=== PATIENT | female | born 2000 | race Caucasian/White ===

== ENCOUNTER → 2024-05-02 | Outpatient (CLI) | payer BC, SELFPAY ==
--- NOTE | 2024-05-02 07:30 | XR_ITS ---
Examination: MRI right ankle, without contrast Date and time of exam: May 02, 2024 0828 hours Technique: Multiple axial sagittal and coronal images of the right ankle have been obtained with the Siemens high-resolution 1.5 Leslie MRI scanner. Images obtained include T2-weighted fat-suppressed sagittal sections, TR 3500, TE 46, T2 weighted coronal fat suppressed images, TR 3050, TE 84, T2-weighted transverse fat suppressed images, TR 3260, TE 63, proton density transverse images, TR 4720 TE 46, and T1 weighted coronal images, TR 560, TE 13. Findings: Mildly biconvex Achilles tendon Mild plantar fasciitis No occult fracture bone contusion marrow edema or avascular necrosis Negative for sinus Tarsi syndrome Edema along the medial aspect of the ankle adjacent to significant tendinitis involving the posterior tibial and flexor digitorum tendons, lesser tendinitis involving the flexor hallucis longus tendon Mild strain anterior talofibular ligament IMPRESSION: Edema along the medial aspect of the ankle Significant tendinitis involving posterior tibial and flexor digitorum tendons Lesser tendinitis involving the flexor hallucis longus Mild strain anterior talofibular ligament
--- NOTE | 2024-05-02 08:00 | XR_ITS ---
Examination: MRI right, without contrast Date and time of exam: May 02, 2024 0804 hours INDICATIONS: Burning sensation on the medial side of the ankle beginning one month ago, history stress fracture left foot Technique: Multiple axial sagittal and coronal images of the right foot have been obtained with the Siemens high-resolution 1.5 Leslie MRI scanner. Images obtained include T2-weighted fat-suppressed sagittal sections, TR 3500, TE 46, T2 weighted coronal fat suppressed images, TR 3050, TE 84, T2-weighted transverse fat suppressed images, TR 3260, TE 63, proton density transverse images, TR 4720 TE 46, and T1 weighted coronal images, TR 560, TE 13. Findings: Ganglion cyst dorsal to the base of the first and second metatarsals, 20 x 19 x 22 mm No occult fracture or bone contusion No avascular necrosis No erosive arthritis Visualized extensor flexor tendons intact IMPRESSION: Septated ganglion cyst dorsal to the base of the first and second metatarsals, 20 x 19 x 22 mm
== END | disposition home or self-care (01) ==
PROVIDERS: Referring Provider Podiatrist; Visit Provider Podiatrist
DX: M67.471 Ganglion, right ankle and foot (principal); M76.821 Posterior tibial tendinitis, right leg; M25.871 Other specified joint disorders, right ankle and foot; M25.471 Effusion, right ankle
CPT/HCPCS: 73718; 73721

== ENCOUNTER 2024-08-20 14:56 | Outpatient (AMB) | payer BC, SELFPAY ==
[2024-08-20 15:07] VITALS: BP 108/72; PULSE 88; RESP 16; TEMP 36.6; O2SAT 99; BMI 41.5
--- NOTE | 2024-08-20 15:07 | OBCLNT_ITS ---
Vital Signs 08/20/24 15:07 Height 1.6 m Height Method Stated Weight 106.311 kg Weight Measurement Method Standing Scale BMI 41.5 BP 108/72 Blood Pressure Source Automatic Cuff Blood Pressure Location Left Upper Arm Position Sitting Respiration 16 Pulse 88 Pulse Source Monitor Temp 97.9 F Temp Source Oral Pulse Oximetry (%) 99 Oxygen Delivery Method Room Air Allergies/Home Meds Allergies & Medications Allergies No Known Allergies Allergy (Verified 08/20/24 15:08) Medication Reconciliation No Known Home Medications 08/20/24 [History Confirmed 08/20/24] Intake Visit Data Collection New Patient or Established: Established Patient (seen at [facility] within 3 years) Reason for Visit:: CARE Seen by Clinical Staff ONLY (RN/MA): No Network Engineer Administrator Required: No Do You Feel Safe at Home: Yes Authorities Contacted: N/A PCP or OBGYN visit in last 3 months: No Hx Now: Yes Are you currently on any form of Control: No Last menstrual period: 03/29/24 Pain Present Currently: No Pain Scale Used: Vergara-Mcleod/Numerical Pain scale:: 0 Smoking Status Smoking Status: Never smoker Questionnaires Covid-19 Vaccine Questionnaire Has patient been vacinated for Covid-19 Have you been vacinated for Covid-19: No PHQ-9 PHQ-2 Over the last 2 weeks, how often have you been bothered by any of the following problems? 1. Little interest or pleasure in doing things: not at all 2. Feeling down, depressed, or hopeless: not at all Total score: 0 PHQ-9 3. Trouble falling or staying asleep, or sleeping too much: Not at all 4. Feeling tired or having little energy: Not at all 5. Poor appetite or overeating: Not at all 6. Feeling bad about yourself - or that you are a failure or have let yourself or your family down: Not at all 7. Trouble concentrating on things, such as reading the newspaper or watching television: Not at all 8. Moving or speaking so slowly that other people could have noticed? - Or the opposite - being so fidgety or restless that you have been moving around a lot more than usual: not at all 9. Thoughts that you would be better off or of hurting yourself in some way: Not at all Total score: 0 Source: Developed by Drs. Aime Stevenson, Rina Garcia, Abel Field and colleagues, with an educational monique from [employer]. Depression screen completed yes Social History Living Situation History Marital Status: Lives With: Family Housing: House Tobacco History Smoking Status: Never smoker Second Hand Smoke Exposure: No Alcohol History Alcohol Intake: Never Substance Use History Substance Use: NONE Domestic Abuse History Do You Feel Safe at Home: Yes Past Medical History Past Medical History Have you ever been diagnosed with any of the following: Neurological Problems Cerebrovascular Accident (CVA): No Transient Ischemic Attacks (TIA): No Dementia: No Alzheimer's Disease: No Parkinson's Disease: No Brain Tumor: No Meningitis: No Seizures: No Cardiology Problems Myocardial Infarction: No Cardiac Arrhythmia: No Atrial Fibrillation: No Angina: No Heart Murmur: No Congestive Heart Failure: No Respiratory Problems Chronic Obstructive Pulmonary Disease (COPD): No Asthma: No Bronchitis: No Emphysema: No Stomache/Intestinal Problems Liver Cancer: No Hepatitis: No Cirrhosis: No Pancreatic Cancer: No Genital/Urinary Problems Renal Disease: No Reproductive Problems Endometriosis: No Pelvic Inflammatory Disease: No Previous Pregnancies: Yes Uterine Prolapse: No Musculoskeletal Problems Muscular Dystrophy: No Myasthenia Gravis: No Marfan's Syndrome: No Head,Eye,Nose,Throat Problems Cataracts: No Glaucoma: No Blind: No Retinal Detachment: No Macular Degeneration: No Chronic Ear Infections: No Deafness: No Eye Prosthesis: No Endocrine Problems Diabetes Mellitus Type 1: No Diabetes Mellitus Type 2: No Blood Problems Anemia: No Leukemia: No Hemophilia: No Thalassemia: No Sickle Cell Disease: No Clotting Problems: No Psychologic Problems Schizophrenia: No Recreational Drug Use: No Bipolar Disorder: No Depression: No Anxiety: No Other Problems Hospitalization: No Down Syndrome: No Developmental Delay: No Shingles: No Falls: No Blood Transfusions: No Blood Transfusion Reaction: No Anesthesia Reactions: No Organ Transplant: No Chemotherapy: No Radiation Therapy: No Hyperbaric Therapy: No MRSA: No VRSA: No Vancomycin-Resistant Enterococci: No Human Immunodeficiency Virus (HIV): No Chicken Pox: No Measles: No Mumps: No Rubella (Korean Measles): No Pertussis: No Clostridium Difficile: No Cancer: No Surgical History Angioplasty: No Appendectomy: No Bariatric Surgery: No History of Present Illness BRIDGET German, , presents for transfer of care at 20 weeks and 4 days gestational age based on last menstrual period of 03-29-2024. She has a history of one full-term vaginal delivery. The patient reports no other complaints today. She has completed labs through [facility], including NIPT and genetic screening. An [facility], with verbal report indicating normal findings and measurements 5 days ahead. The patient is currently experiencing cold symptoms with cough but denies fever. Laboratory, Imaging, and Diagnostic Test Results - Anatomy scan: Fetus measuring 5 days ahead, all structures reported as normal - NIPT (Non-Invasive Testing): Negative for trisomies, sex identified as male - Blood type: A-negative - Rh factor: Negative - Antibody screen: Negative - HIV: Negative - Hepatitis B: Negative - Hepatitis C: Negative - RPR (for syphilis): Negative - HCG level on June 07: 74,000 OB Initial Visit Menstrual History Menstrual reliability: definite Flow: normal Menstrual regularity: irregular Monthly: No Age at menarche: 13 On control pills at conception: No Date of positive home test: 05/13/24 OB History : 2 Para: 1 Hx # Pregnancies: 0 Hx Total # of Abortions (Spontaneous & Elective): 0 # of Living Children: 1 Delivery History 1st : Child's name: ELMA date: 06/24/22 sex: female Gestational age at delivery (weeks): 39 Delivery type: vaginal Delivery complications: BABY- BROKEN CLAVICLE History of depression before or after : No Infection History & Risk Evaluation History of STDs: none Genetic Screening & History Genetic Screening/Teratology Counseling - Includes patient, baby's father, or anyone in either family with: 1. Patient's age 35 years or older as of estimated date of delivery: No 2. Thalassemia (Eritrean, Georgian, Mediterranean, or Background); MCV less than 80: No 3. Neural Tube Defect (Meningomyelocele, Spina Bifida, or Anencephaly): No 4. Congenital Heart Defect: No 5. Down Syndrome: No 6. Jeremy-Sachs (Ashkenazi Sabianist, Cajun, Croatian Starlight): No 7. Nu Disease (Ashkenazi Sabianist): No 8. Familial Dysautonomia (Ashkenazi Sabianist): No 10. Hemophilia or other blood disorders: No 11. Muscular Dystrophy: No 12. Cystic Fibrosis: No 13. [place]'s Chorea: No 14. Mental Retardation/Autism: No 15. Other inherited genetic or chromosomal disorder: No 16. Maternal Metabolic Disorder (EG,TYPE 1 Diabetes, PKU): No 17. Patient or baby's father had a child with defects not listed above: No 18. Recurrent loss or a stillbirth: No 19. Medications (including supplements, vitamins, herbs or otc drugs)/illicit/recreational drugs/alcohol since last menstrual period: No 20. Any other: No Infection History 1. Live with someone with TB or exposed to TB: No 2. Rash or viral illness since last menstrual period: No 3. Hepatitis B,C: No Other (see comments) Source: [employer] OB Flowsheet OB Flowsheet Initial Weight: Not Recorded Date -?-?-?-?-?-?-?-?-?-?-?-?- EGA Weight Edema CTX Effacement BP Fundal ht Pres Dilation Effacement Station Visit Note Alb Glu FHR Mov 08/20/24 -?-?-?-?-?-?-?-?-?-?-?-?- 20w 4d 106.311 kg 108/72 135 Review of Systems Review of Systems Systems Reviewed: All systems reviewed, normal except as documented Exam General Limitations: no limitations General Appearance: alert, in no apparent distress, comfortable, cooperative, healthy appearing, well developed and well groomed Head Head exam: atraumatic, normocephalic and normal inspection Neck Neck exam: Present normal inspection, full ROM and trachea midline Chest Chest inspection: Present normal inspection and symmetric chest wall rise Abdominal Abdominal exam: Present soft and normal bowel sounds Extremities Extremities exam: Present normal inspection and full ROM Back Back exam: Present normal inspection and full ROM Psych Psychiatric exam: Present normal affect and normal mood Skin Skin exam: Present warm, dry, intact and normal color Assessment & Plan Diagnosis / Problem List (1) Obesity affecting in second trimester: Status: Acute Plan: Monserrat is a 24-year-old at 20 weeks and 4 days gestation based on LMP of 03-29-2024. She has a history of one full-term vaginal delivery. The patient has completed NIPT and anatomy scan. Verbal report from anatomy scan indicates normal findings with fetus measuring 5 days ahead. NIPT results confirm male gender, which matches ultrasound findings. All genetic screenings for trisomies were negative. Patient is blood type A-negative with negative antibody screen. HIV, hepatitis B, hepatitis C, and RPR screenings were all negative. - Follow up with Dr. Roman on September 10 for next ultrasound - Schedule 24-week visit and labs - Obtain and review records from previous care provider, including anatomy scan report - Consider patient's interest in scheduled at 40 weeks; provide further counseling as needed (2) Supervision of high risk , unspecified, second trimester: Status: Acute (3) Rh negative status during : Status: Acute Plan: - Administer Rh immunoglobulin as indicated for Rh-negative status Office Procedures OB Clinic LOC & Office Proc's Nursing/Assessment Patient Status: Established Patient OB Clinic Nursing Assessment: Medication Reconciliation, Update PMH in EMR and Vital Signs OB Clinic Coordination of Care: Complex Care and Chronic Disease 1-5, Consent,records obtained, informed consent, Education Simp Pt/Fam, Lab and Imaging orders, Results/Orders obtained and Staff clarify orders Special Needs: Heart tones Established Patient Charge Established Patient Point Assignment: 135 Established Patient Point Charge: EP Level 4 (120-155)
== END 2024-08-20 15:40 | disposition home or self-care (01) ==
LOC: HODSOBC 14:56
PROVIDERS: PCP Obstetrics & Gynecology; Referring Provider Obstetrics & Gynecology; Supervising Provider Obstetrics & Gynecology; Visit Provider Obstetrics & Gynecology
DX: O09.92 Supervision of high risk pregnancy, unspecified, second trimester (principal); O99.212 Obesity complicating pregnancy, second trimester; Z67.91 Unspecified blood type, Rh negative; Z3A.20 20 weeks gestation of pregnancy
CPT/HCPCS: 99214; G0463

== ENCOUNTER 2024-09-17 14:58 | Outpatient (AMB) | payer BC, SELFPAY ==
[2024-09-17 15:18] VITALS: BP 132/72; PULSE 90; RESP 16; TEMP 35.9; O2SAT 99; BMI 41.6
--- NOTE | 2024-09-17 15:18 | OBCLNT_ITS ---
Vital Signs 09/17/24 15:18 Height 1.6 m Height Method Stated Weight 106.708 kg Weight Measurement Method Standing Scale BMI 41.6 BP 132/72 H Blood Pressure Source Automatic Cuff Blood Pressure Location Left Upper Arm Position Sitting Respiration 16 Pulse 90 Pulse Source Monitor Temp 96.7 F L Temp Source Oral Pulse Oximetry (%) 99 Oxygen Delivery Method Room Air Allergies/Home Meds Allergies & Medications Allergies No Known Allergies Allergy (Verified 09/17/24 15:21) Medication Reconciliation No Known Home Medications 08/20/24 [History Confirmed 09/17/24] Intake Visit Data Collection New Patient or Established: Established Patient (seen at [facility] within 3 years) Reason for Visit:: OBC Seen by Clinical Staff ONLY (RN/MA): No Resource Paraprofessional Required: No Do You Feel Safe at Home: Yes Authorities Contacted: N/A PCP or OBGYN visit in last 3 months: Yes Hx Now: Yes Are you currently on any form of Control: No Pain Present Currently: No Pain Scale Used: Vergara-Mcleod/Numerical Pain scale:: 0 Smoking Status Smoking Status: Never smoker Questionnaires Covid-19 Vaccine Questionnaire Has patient been vacinated for Covid-19 Have you been vacinated for Covid-19: Yes PHQ-9 PHQ-2 Over the last 2 weeks, how often have you been bothered by any of the following problems? 1. Little interest or pleasure in doing things: not at all 2. Feeling down, depressed, or hopeless: not at all Total score: 0 PHQ-9 3. Trouble falling or staying asleep, or sleeping too much: Not at all 4. Feeling tired or having little energy: Not at all 5. Poor appetite or overeating: Not at all 6. Feeling bad about yourself - or that you are a failure or have let yourself or your family down: Not at all 7. Trouble concentrating on things, such as reading the newspaper or watching television: Not at all 8. Moving or speaking so slowly that other people could have noticed? - Or the opposite - being so fidgety or restless that you have been moving around a lot more than usual: not at all 9. Thoughts that you would be better off or of hurting yourself in some way: Not at all Total score: 0 If you checked off any problems, how difficult have these problems made it for you to do your work, take care of things at home, or get along with other people?: not difficult at all Source: Developed by Drs. Aime Stevenson, Rina Garcia, Abel Field and colleagues, with an educational monique from [employer]. Depression screen completed yes Social History Living Situation History Lives With: Family Housing: House Tobacco History Smoking Status: Never smoker Second Hand Smoke Exposure: No Alcohol History Alcohol Intake: Never Substance Use History Substance Use: NONE Domestic Abuse History Do You Feel Safe at Home: Yes Past Medical History Past Medical History Have you ever been diagnosed with any of the following: Neurological Problems Cerebrovascular Accident (CVA): No Transient Ischemic Attacks (TIA): No Dementia: No Alzheimer's Disease: No Parkinson's Disease: No Brain Tumor: No Meningitis: No Seizures: No Cardiology Problems Myocardial Infarction: No Cardiac Arrhythmia: No Atrial Fibrillation: No Angina: No Heart Murmur: No Congestive Heart Failure: No Respiratory Problems Chronic Obstructive Pulmonary Disease (COPD): No Asthma: No Bronchitis: No Emphysema: No Stomache/Intestinal Problems Liver Cancer: No Hepatitis: No Cirrhosis: No Pancreatic Cancer: No Genital/Urinary Problems Renal Disease: No Reproductive Problems Endometriosis: No Pelvic Inflammatory Disease: No Previous Pregnancies: Yes Uterine Prolapse: No Musculoskeletal Problems Muscular Dystrophy: No Myasthenia Gravis: No Marfan's Syndrome: No Head,Eye,Nose,Throat Problems Cataracts: No Glaucoma: No Blind: No Retinal Detachment: No Macular Degeneration: No Chronic Ear Infections: No Deafness: No Eye Prosthesis: No Endocrine Problems Diabetes Mellitus Type 1: No Diabetes Mellitus Type 2: No Blood Problems Anemia: No Leukemia: No Hemophilia: No Thalassemia: No Sickle Cell Disease: No Clotting Problems: No Psychologic Problems Schizophrenia: No Recreational Drug Use: No Bipolar Disorder: No Depression: No Anxiety: No Other Problems Hospitalization: No Down Syndrome: No Developmental Delay: No Shingles: No Falls: No Blood Transfusions: No Blood Transfusion Reaction: No Anesthesia Reactions: No Organ Transplant: No Chemotherapy: No Radiation Therapy: No Hyperbaric Therapy: No MRSA: No VRSA: No Vancomycin-Resistant Enterococci: No Human Immunodeficiency Virus (HIV): No Chicken Pox: No Measles: No Mumps: No Rubella (Hungarian Measles): No Pertussis: No Clostridium Difficile: No Cancer: No Surgical History Angioplasty: No Appendectomy: No Bariatric Surgery: No History of Present Illness HPI Narrative Monserrat, a patient, presents for follow-up after a recent ultrasound with Dr. Cisneros on September 10. The patient reports that an abnormality was found during the ultrasound, specifically that the fetus has only one kidney, though she cannot recall which side is affected. The patient mentions that additional testing has been scheduled, including a echocardiogram. She states that during the previous ultrasound, all chambers and ventricles of the heart were visible. The patient confirms that the baby remains active. Monserrat is taking vitamins as prescribed. She has not yet completed the glucose tolerance test for diabetes screening, which has been ordered for today's visit. Obstetric History - Current : - abnormality detected: single kidney (side not specified) - Additional testing scheduled: echocardiogram No contractions/ LOF/VB, reports good FM No GARCIA/VC/RUQ/Epig pain Review of Systems Review of Systems Systems Reviewed: All systems reviewed, normal except as documented Visit OB Visit Log OB Flowsheet Initial Weight: Not Recorded Date -?-?-?-?-?-?-?-?-?-?-?-?- EGA Weight Edema CTX Effacement BP Fundal ht Pres Dilation Effacement Station Visit Note Alb Glu FHR Mov 08/20/24 -?-?-?-?-?-?-?-?-?-?-?-?- 20w 4d 106.311 kg 108/72 135 09/17/24 -?-?-?-?-?-?-?-?-?-?-?-?- 24w 4d 106.708 kg 132/72 - G o to [facility] for a glucose test - Fast before the test - Drink glucose solution at the lab - Blood will be drawn at 1 hour and 2 hours. - Call Dr. Roman's office to release y our records to us - Regular visit in 4 weeks - Earlier visit to discuss ultrasound re sults once we receive them - We will call you when we have the ultr asound report to schedule the earlier visit 145 ANN Calculator Estimated Delivery Date Method Current WG Current Estimate 01/03/25 LMP (Certain) 26w 0d Exam General Limitations: no limitations General Appearance: alert, in no apparent distress, comfortable, cooperative, healthy appearing, well developed and well groomed Head Head exam: atraumatic, normocephalic and normal inspection Chest Chest inspection: Present normal inspection and symmetric chest wall rise Abdominal Abdominal exam: Present soft and normal bowel sounds Psych Psychiatric exam: Present normal affect and normal mood Skin Skin exam: Present warm, dry, intact and normal color Assessment & Plan Diagnosis / Problem List (1) Rh negative status during : Status: Acute (2) Obesity affecting in second trimester: Status: Acute (3) Supervision of high risk , unspecified, second trimester: Status: Acute Plan Problem List renal agenesis, cardiac abnormality Assessment anomaly detected on ultrasound, specifically an abnormality where the fetus has only one kidney (side unspecified). Additional cardiac defects were mentioned, though all chambers and ventricles were visualized. An echocardiogram has been scheduled for further evaluation. heart rate was 160 bpm, noted as normal. Routine glucose tolerance test for gestational diabetes screening has been ordered. Patient is taking vitamins. Plan Schedule follow-up appointment in 23 days to review ultrasound results. Patient to call Dr. Calles's office to release records to current provider. Ordered glucose tolerance test for diabetes screening - patient to complete at [facility], fasting, with 1-hour and 2-hour draws. Scheduled echocardiogram to evaluate cardiac defects. Regular OB visit scheduled in 4 weeks. Additional appointment to be scheduled sooner to discuss ultrasound results once received. Educated the patient on labor signs, including regular contractions, lower back pain, and changes in vaginal discharge. Advised avoiding heavy lifting and getting adequate rest. Instructed to contact the office immediately if any signs occur. Discussed the importance of a balanced diet rich in folic acid, iron, and calcium, and provided a list of recommended and to-avoid foods. Emphasized avoiding high-sugar foods to reduce gestational diabetes risk. Encouraged hydration and frequent, small meals for energy.. Office Procedures OB Clinic LOC & Office Proc's Nursing/Assessment Patient Status: Established Patient OB Clinic Nursing Assessment: BP Monitoring, Medication Reconciliation, Update PMH in EMR and Vital Signs OB Clinic Coordination of Care: Consent,records obtained, informed consent, Education Simp Pt/Fam, Lab and Imaging orders and Staff clarify orders Special Needs: Heart tones Established Patient Charge Established Patient Point Assignment: 120 Established Patient Point Charge: EP Level 4 (120-155)
== END 2024-09-17 15:25 | disposition home or self-care (01) ==
LOC: HODSOBC 14:58
PROVIDERS: PCP Obstetrics & Gynecology; Referring Provider Obstetrics & Gynecology; Supervising Provider Obstetrics & Gynecology; Visit Provider Obstetrics & Gynecology
DX: O09.892 Supervision of other high risk pregnancies, second trimester (principal); Z3A.24 24 weeks gestation of pregnancy; O35.EXX0 Maternal care for other (suspected) fetal abnormality and damage, fetal genitourinary anomalies, not applicable or unspecified; O99.212 Obesity complicating pregnancy, second trimester; O26.892 Other specified pregnancy related conditions, second trimester; Z67.91 Unspecified blood type, Rh negative
CPT/HCPCS: 99214; G0463

== ENCOUNTER → 2024-09-24 | Outpatient (CLI) | payer BC, SELFPAY ==
[2024-09-24 10:12] LABS: Glucose 1/2 Hour 143 mg/dL (110-170)
[2024-09-24 10:16] LABS: Glucose, Fasting 87 mg/dL (74-106)
[2024-09-24 10:26] LABS: Glucose 1 Hour 119 mg/dL (120-170)
[2024-09-24 11:45] LABS: Glucose 2 Hour 118 mg/dL (70-120)
== END | disposition home or self-care (01) ==
PROVIDERS: Referring Provider Obstetrics & Gynecology; Visit Provider Obstetrics & Gynecology
DX: O09.92 Supervision of high risk pregnancy, unspecified, second trimester (principal); O99.212 Obesity complicating pregnancy, second trimester; Z67.91 Unspecified blood type, Rh negative; Z3A.00 Weeks of gestation of pregnancy not specified
CPT/HCPCS: 36415; 82951; 82952

== ENCOUNTER 2024-10-22 15:04 | Outpatient (AMB) | payer BC, SELFPAY ==
--- NOTE | 2024-10-22 15:19 | AMB.OBVISIT ---
Vital Signs 10/22/24 15:20 Height 1.6 m Height Method Stated Weight 108.664 kg Weight Measurement Method Standing Scale BMI 42.4 BP 122/77 Blood Pressure Source Automatic Cuff Blood Pressure Location Left Upper Arm Position Sitting Respiration 18 Pulse 90 Pulse Source Monitor Temp 97.2 F Temp Source Oral Pulse Oximetry (%) 98 Oxygen Delivery Method Room Air Allergies/Home Meds Allergies & Medications Allergies No Known Allergies Allergy (Verified 10/22/24 15:20) Medication Reconciliation No Known Home Medications 08/20/24 [History Confirmed 10/22/24] Intake Visit Data Collection New Patient or Established: Established Patient (seen at [facility] within 3 years) Reason for Visit:: OB CHECK Seen by Clinical Staff ONLY (RN/MA): No Sex Offender Treatment Professional Required: No Do You Feel Safe at Home: Yes Authorities Contacted: N/A PCP or OBGYN visit in last 3 months: Yes Date of Last PCP or OBGYN visit: 09/17/24 Hx Now: Yes Are you currently on any form of Control: No Pain Present Currently: No Pain Scale Used: Vergara-Mcleod/Numerical Pain scale:: 0 Smoking Status Smoking Status: Never smoker Questionnaires Covid-19 Vaccine Questionnaire Has patient been vacinated for Covid-19 Have you been vacinated for Covid-19: Yes PHQ-9 PHQ-2 Over the last 2 weeks, how often have you been bothered by any of the following problems? 1. Little interest or pleasure in doing things: not at all 2. Feeling down, depressed, or hopeless: not at all Total score: 0 PHQ-9 3. Trouble falling or staying asleep, or sleeping too much: Not at all 4. Feeling tired or having little energy: Not at all 5. Poor appetite or overeating: Not at all 6. Feeling bad about yourself - or that you are a failure or have let yourself or your family down: Not at all 7. Trouble concentrating on things, such as reading the newspaper or watching television: Not at all 8. Moving or speaking so slowly that other people could have noticed? - Or the opposite - being so fidgety or restless that you have been moving around a lot more than usual: not at all 9. Thoughts that you would be better off or of hurting yourself in some way: Not at all Total score: 0 If you checked off any problems, how difficult have these problems made it for you to do your work, take care of things at home, or get along with other people?: not difficult at all Source: Developed by Drs. Aime Stevenson, Rina Garcia, Abel Field and colleagues, with an educational monique from [employer]. Depression screen completed yes Social History Living Situation History Marital Status: Single Lives With: Family Housing: House Tobacco History Smoking Status: Never smoker Second Hand Smoke Exposure: No Alcohol History Alcohol Intake: Never Substance Use History Substance Use: NONE Domestic Abuse History Do You Feel Safe at Home: Yes [employer]: Past Medical History Past Medical History: No Hx Neurological Disorders, No Hx Cardiac Disorders, No Hx Cancer, No Hx Blood Disorders, No Hx Anemia, No Hx Gastrointestinal Disorders, No Hx Renal Disease, No Hx Diabetes Mellitus Type 1 and No Hx Diabetes Mellitus Type 2 History of Present Illness HPI Narrative - Asya is a 24-year-old at 29 weeks and 4 days gestation presenting for routine care. - Patient has a history of one previous full-term vaginal delivery. - She expresses interest in a primary section for this . - Patient confirms she has made up her mind about the . - No reported contractions or other issues. - movement is present. - Patient is scheduled for a echocardiogram tomorrow with Dr. Severo Mann. No contractions/ LOF/VB, reports good FM No GARCIA/VC/RUQ/Epig pain Care OB Visit Log OB Flowsheet Initial Weight: Not Recorded Date <del>?</del> EGA Weight BP Alb Glu CTX Pres Fundal ht FHR Mov Dilation Station Effacement Hx Notes Visit Note 08/20/24 <del>?</del> 20w 4d 106.311 kg 108/72 135 09/17/24 <del>?</del> 24w 4d 106.708 kg 132/72 145 - Go to [facility] for a glucose test - Fast before the test - Drink glucose solution at the lab - Blood will be drawn at 1 hour and 2 hours. - Call Dr. Roman's office to release your records to us - Regular visit in 4 weeks - Earlier visit to discuss ultrasound results once we receive them - We will call you when we have the ultrasound report to schedule the earlier visit 10/22/24 <del>?</del> 29w 4d 108.664 kg 122/77 140 Asya, 24 y/o at 29w4d, presents for routine visit. Reports good movement, no contractions, and no complaints. History of one prior full-term vaginal delivery. Patient expresses clear desire for a primary section this . Gestational diabetes screen was negative (2-hour GTT: 87, 143, 119). FHR auscultated at [address] Mann is scheduled for tomorrow. Plan: Schedule elective primary section between 39?40 weeks gestation Submit booking request today Schedule ultrasound at 34 weeks for weight and growth Follow-up in 2 weeks Begin weekly visits after 34 weeks Review echo results at next visit NAN Calculator Estimated Delivery Date Method Current WG Current Estimate 01/03/25 LMP (Certain) 31w 3d Exam General General Appearance: alert, in no apparent distress and healthy appearing Head Head exam: atraumatic Neck Neck exam: Present normal inspection and trachea midline Chest Chest inspection: Present normal inspection and symmetric chest wall rise External exam: Present normal external exam; Absent tenderness Neuro Neurological exam: Present oriented X3 Psych Psychiatric exam: Present normal affect and normal mood Office Procedures OB Clinic LOC & Office Proc's Nursing/Assessment Patient Status: Established Patient OB Clinic Nursing Assessment: Medication Reconciliation, Update PMH in EMR and Vital Signs OB Clinic Coordination of Care: Education Complex Pt/Fam, Education Simp Pt/Fam and Staff clarify orders Special Needs: Heart tones Established Patient Charge Established Patient Point Assignment: 105 Established Patient Point Charge: EP Level 3 (80-115) Assessment & Plan Diagnosis / Problem List (1) Rh negative status during : Status: Acute (2) Obesity affecting in second trimester: Status: Acute (3) Supervision of high risk , unspecified, second trimester: Status: Acute Plan Problem List - , 29 weeks and 4 days - 2, Para 1 Assessment - at 29 weeks 4 days gestation - Negative screen for gestational diabetes (2-hour glucose tolerance: 87, 143, 119) - Patient desires primary section - heart rate 153 bpm, normal Plan - Schedule primary section between 39 and 40 weeks gestation - Send request for booking today - Perform ultrasound at 34 weeks to measure weight - Follow up in 2 weeks - Transition to weekly appointments after 34 weeks - Await results of echocardiogram with Dr. Mann Educated the patient on labor signs, including regular contractions, lower back pain, and changes in vaginal discharge. Advised avoiding heavy lifting and getting adequate rest. Instructed to contact the office immediately if any signs occur. Discussed the importance of a balanced diet rich in folic acid, iron, and calcium, and provided a list of recommended and to-avoid foods. Emphasized avoiding high-sugar foods to reduce gestational diabetes risk. Encouraged hydration and frequent, small meals for energy..
[2024-10-22 15:20] VITALS: BP 122/77; PULSE 90; RESP 18; TEMP 36.2; O2SAT 98; BMI 42.4
== END 2024-10-22 15:42 | disposition home or self-care (01) ==
LOC: HODSOBC 15:04
PROVIDERS: PCP Obstetrics & Gynecology; Referring Provider Obstetrics & Gynecology; Supervising Provider Obstetrics & Gynecology; Visit Provider Obstetrics & Gynecology
DX: O09.893 Supervision of other high risk pregnancies, third trimester (principal); Z3A.29 29 weeks gestation of pregnancy; O99.213 Obesity complicating pregnancy, third trimester; O26.893 Other specified pregnancy related conditions, third trimester; Z67.91 Unspecified blood type, Rh negative
CPT/HCPCS: 99213; G0463

== ENCOUNTER 2024-11-19 15:04 | Outpatient (AMB) | payer BC, SELFPAY ==
--- NOTE | 2024-11-19 15:55 | OBCLNT_ITS ---
Vital Signs 11/19/24 15:56 Height 1.6 m Height Method Stated Weight 108.465 kg Weight Measurement Method Standing Scale BMI 42.3 BP 115/74 Blood Pressure Source Automatic Cuff Blood Pressure Location Left Upper Arm Position Sitting Respiration 18 Pulse 91 Pulse Source Monitor Temp 96.8 F Temp Source Oral Pulse Oximetry (%) 98 Oxygen Delivery Method Room Air Allergies/Home Meds Allergies & Medications Allergies No Known Allergies Allergy (Verified 11/19/24 16:23) Medication Reconciliation No Known Home Medications 08/20/24 [History Confirmed 11/19/24] Intake Visit Data Collection New Patient or Established: Established Patient (seen at [facility] within 3 years) Reason for Visit:: OBC Seen by Clinical Staff ONLY (RN/MA): No Light Rail Operator Required: No Do You Feel Safe at Home: Yes Authorities Contacted: N/A PCP or OBGYN visit in last 3 months: Yes Date of Last PCP or OBGYN visit: 10/22/24 Hx Now: Yes Are you currently on any form of Control: No Pain Present Currently: No Pain Scale Used: Vergara-Mcleod/Numerical Pain scale:: 0 Smoking Status Smoking Status: Never smoker Questionnaires Covid-19 Vaccine Questionnaire Has patient been vacinated for Covid-19 Have you been vacinated for Covid-19: Yes PHQ-9 PHQ-2 Over the last 2 weeks, how often have you been bothered by any of the following problems? 1. Little interest or pleasure in doing things: not at all 2. Feeling down, depressed, or hopeless: not at all Total score: 0 PHQ-9 3. Trouble falling or staying asleep, or sleeping too much: Not at all 4. Feeling tired or having little energy: Not at all 5. Poor appetite or overeating: Not at all 6. Feeling bad about yourself - or that you are a failure or have let yourself or your family down: Not at all 7. Trouble concentrating on things, such as reading the newspaper or watching television: Not at all 8. Moving or speaking so slowly that other people could have noticed? - Or the opposite - being so fidgety or restless that you have been moving around a lot more than usual: not at all 9. Thoughts that you would be better off or of hurting yourself in some way: Not at all Total score: 0 If you checked off any problems, how difficult have these problems made it for you to do your work, take care of things at home, or get along with other people?: not difficult at all Source: Developed by Drs. Aime Stevenson, Rina Garcia, Abel Field and colleagues, with an educational monique from [employer]. 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 Patient has a history of prior delivery. No contractions, LOF, VB and reports good FM. Denies GARCIA, VC, and epigastric pain. - Monserrat is a patient in her 3rd trimester who transferred care from [facility], requesting a primary due to shoulder dystocia with clavicle fracture in her 1st delivery. - Estimated due date is January 23, 2025. - Patient reports no new symptoms or concerns during this visit. - An ultrasound is scheduled for December 05 for final measurements. - heart rate noted as 135 bpm, described as normal. Care OB Visit Log OB Flowsheet Initial Weight: Not Recorded Date -?-?--?-?-?-?-?-?-?-?-?-?- EGA Weight BP Alb Glu CTX Pres Fundal ht FHR Mov Dilation Station Effacement Hx Notes Visit Note 08/20/24 -?-?-?-?-?-?-?-?-?-?-?-?- 20w 4d 106.311 kg 108/72 135 09/17/24 -?-?-?-?-?-?-?-?-?-?-?-?- 24w 4d 106.708 kg 132/72 145 - Go to [facility] for a glucose test - Fast before the test - Drink glucose solution at the lab - Blood will be drawn at 1 hour and 2 hours. - Call Dr. Roman's office to release y our records to us - Regular visit in 4 weeks - Earlier visit to discuss ultrasound re sults once we receive them - We will call you when we have the ultr asound report to schedule the earlier visit 10/22/24 -?-?-?-?-?-?-?-?-?-?-?-?- 29w 4d 108.664 kg 122/77 140 Asya, 24 y/o at 29w4d, presents for routine visit. Reports good movement, no contractions, and no complaints. History of one prior full-term vaginal delivery. Patient expresses clear desire for a primary section this . Gestational diabetes screen was negative (2-hour GTT: 87, 143, 119). FHR auscultated at [address] Mann is scheduled for tomorrow. Plan: Schedule elective primary secti on between 39?40 weeks gestation Submit booking request today Schedule ultrasound at 34 weeks for feta l weight and growth Follow-up in 2 weeks Begin weekly visits after 34 weeks Review echo results at next visit 11/19/24 -?-?-?-?-?-?-?-?-?-?-?-?- 33w 4d 108.465 kg 115/74 @ 28w, transferred care from [facility], requesting primary due to prior shoulder dystocia with clavicle fracture. Reports good FM, no CTX/LOF/VB. No GARCIA/VC/Epig pain. FHT 135 bpm. NAN 01/23/25. Plan: Schedule between 01/16?01/10 4 pending outside records. Ultrasound for growth on 12/05. Order CBC and RPR. Follow-up q2 weeks. NAN Calculator Estimated Delivery Date Method Current WG Current Estimate 01/03/25 LMP (Certain) 33w 5d Office Procedures OB Clinic LOC & Office Proc's Nursing/Assessment Patient Status: Established Patient OB Clinic Nursing Assessment: Medication Reconciliation, Update PMH in EMR and Vital Signs OB Clinic Coordination of Care: Education Complex Pt/Fam, Consent,records obtained, informed consent, Lab and Imaging orders and Staff clarify orders Special Needs: Heart tones Established Patient Charge Established Patient Point Assignment: 110 Established Patient Point Charge: EP Level 3 (80-115) Injection/Vaccine Admin Admin 1st Vaccine: Yes Office Meds Rhophylac 1,500 unit (300 mcg)/2 mL injection syringe Performing Provider: Nicho Hemphill MD Performing Location: [facility] SHORT[facility] INVESTIGATOR Clinic Administered by: Livia Paredes MA on 11/19/24 16:25 Dose Route Admin Location Dispensed Lot Number Expiration Date [facility] Irrigationist 1,500 unit IM LEFT GLUTE 2 mL [id number] 11/29/26 42467-742-51 [address] [facility] Assessment & Plan Diagnosis / Problem List (1) Supervision of high risk , unspecified, second trimester: Status: Acute (2) Obesity affecting in second trimester: Status: Acute (3) Rh negative status during : Status: Acute Plan Problem List - , third trimester - History of shoulder dystocia with clavicle fracture in previous delivery Assessment at approximately 28-32 weeks gestation (exact gestational age unclear without records), transferred care in 3rd trimester. History of shoulder dystocia with clavicle fracture in first delivery. Patient requesting primary section. Estimated due date of January 23. heart rate 135 bpm, within normal range. Pending anemia screening with CBC and RPR for syphilis. Awaiting medical records from previous provider for complete obstetrical history and to schedule section. Plan - Schedule between January 16 and January 23, pending receipt of medical records from [facility] - Ultrasound scheduled for December 05 for final measurements and weight estimation - Lab work ordered: CBC for anemia check and RPR for syphilis screening - Follow-up visits scheduled every 2 weeks 1. Progress Reviewed gestational age, growth, and heart rate. Planned frequent visits (every 2 weeks until 36 weeks, then weekly). 2. Instructed patient to monitor movements and report decreases immediately. 3. Testing Counseled on routine third-trimester labs per guidelines. Discussed potential need for ultrasound or monitoring based on risk factors. 4. Preeclampsia Precaution Educated on preeclampsia signs: severe headache, vision changes, right upper quadrant pain, sudden swelling. Advised urgent reporting of symptoms and discussed blood pressure monitoring if high risk. 5. Labor Precautions Reviewed labor signs: regular contractions, pelvic pressure, back pain, bleeding, or fluid leakage. Instructed to seek immediate care for these symptoms. 6. Lifestyle and Delivery Preparation Reinforced vitamins, nutrition, and safe activity. Discussed plan, pain management, and . Advised on labor preparation (e.g., hospital bag) and expectations. 7. Psychosocial Support Assessed emotional well-being and offered resources for mental health or parenting support.
[2024-11-19 15:56] VITALS: BP 115/74; PULSE 91; RESP 18; TEMP 36; O2SAT 98; BMI 42.3
== END 2024-11-19 15:56 | disposition home or self-care (01) ==
LOC: HODSOBC 15:04
PROVIDERS: PCP Obstetrics & Gynecology; Referring Provider Obstetrics & Gynecology; Supervising Provider Obstetrics & Gynecology; Visit Provider Obstetrics & Gynecology
DX: O09.293 Supervision of pregnancy with other poor reproductive or obstetric history, third trimester (principal); O09.893 Supervision of other high risk pregnancies, third trimester; O99.213 Obesity complicating pregnancy, third trimester; O26.892 Other specified pregnancy related conditions, second trimester; Z67.91 Unspecified blood type, Rh negative; Z3A.33 33 weeks gestation of pregnancy; Z87.59 Personal history of other complications of pregnancy, childbirth and the puerperium
CPT/HCPCS: 90471; 90715; 96372; 99213; J3490; G0463; J2791

== ENCOUNTER 2024-11-28 07:50 | Observation (INO) | payer BC, SELFPAY ==
[2024-11-28] VITALS (7 sets, daily range): BP systolic 114; BP diastolic 61; PULSE 98–122; RESP 20–97; TEMP 37.3; O2SAT 96–99; BMI 42.3
== END 2024-11-28 08:50 | disposition home or self-care (01) ==
PROVIDERS: Admitting Provider Specialist; Visit Provider Specialist
DX: O26.893 Other specified pregnancy related conditions, third trimester (principal); Z3A.32 32 weeks gestation of pregnancy; M25.552 Pain in left hip
CPT/HCPCS: 59025; 59899

== ENCOUNTER 2024-11-28 09:02 | Emergency (ER) | payer BC, SELFPAY ==
[2024-11-28 09:12] VITALS: BP 122/82; PULSE 113; RESP 18; TEMP 36.9; O2SAT 97; BMI 42.3
--- NOTE | 2024-11-28 09:34 | PD.EDHIP ---
Lower Extremity Injury RME/HPI General Chief Complaint: Hip Injury/Pain Stated Complaint: 32 weeks OB, left hip pain Time Seen by Provider: 11/28/24 09:07 Arrival date/time: 11/28/24 09:02 Mode of arrival: ambulatory Limitations: no limitations RME / HPI RME / HPI Narrative: 24-year-old female who is currently 32 weeks presents for evaluation of left hip pain x 2 weeks. She describes it as radiating from her left lower back to her posterior mid thigh. She denies bladder and bowel incontinence, fever, chills, chest pain, shortness of breath, weakness, numbness. Denies trauma or prior injury. Denies saddle parasthesias. Patient was seen by her OB for this concern and advised to present for stress fracture workup. MD complaint: hip injury Onset (ago): week(s) Injury: Left: hip Type of Injury: unknown Exacerbating factors: weight bearing and movement Other symptoms: none Related Data Home Medications ?Medication ?Instructions ?Recorded ?Confirmed vitamin no.45-iron-FA 28 1 tab PO QDAY 11/28/24 12/03/24 mg iron-1 mg chewable tablet Allergies Allergy/AdvReac Type Severity Reaction Status Date / Time No Known Allergies Allergy Verified 12/03/24 14:15 Review of Systems Constitutional Constitutional: Denies chills, Denies fever(s), Denies frequent falls and Denies night sweats Eyes Eyes: Denies blurry vision and Denies change in vision ENT Ears, Nose, Mouth, and Throat: Denies dizziness, Denies otalgia, Denies facial pain and Denies neck pain Cardiovascular Cardiovascular: Denies chest pain, Denies dyspnea and Denies leg edema Respiratory Respiratory: Denies cough, Denies dyspnea and Denies wheezing Gastrointestinal Gastrointestinal: Denies abdominal pain, Denies nausea and Denies vomiting Genitourinary Genitourinary: Denies abnormal vaginal bleeding, Denies dysuria and Denies flank pain Musculoskeletal Musculoskeletal: Denies arthralgias, Reports back pain, Denies muscle cramps, Denies muscle weakness, Denies neck pain, Reports radiating pain into limb and Denies stiffness Integumentary/Breasts Skin/Breast: Denies change in pigmentation and Denies wounds Neurologic Neurologic: Denies convulsions, Denies dizziness, Denies frequent falls, Reports radicular pain and Denies restless legs Allergic/Immunologic Allergic/Immunologic: Denies wheezing Past Medical History Past Medical History NEUROLOGIC: Negative Neurological Disorders, Cerebrovascular Accident, Transient Ischemic Attacks (TIA), Dementia, Alzheimer's Disease, Parkinson's Disease, Brain Tumor, Meningitis or Seizures CARDIAC: Negative Cardiac Disorders, Myocardial Infarction, Cardiac Arrhythmia, Atrial Fibrillation, Angina, Heart Murmur or Congestive Heart Failure RESPIRATORY: Negative Chronic Obstructive Pulmonary Disease (COPD), Asthma, Bronchitis or Emphysema GASTROINTESTINAL: Negative Gastrointestinal Disorders, Liver Cancer, Hepatitis, Cirrhosis or Pancreatic Cancer GENITOURINARY: Negative Genitourinary Disorders or Renal Disease REPRODUCTIVE: Positive Previous Pregnancies; Negative Endometriosis, Pelvic Inflammatory Disease or Uterine Prolapse MUSCULOSKELETAL: Negative Musculoskeletal Disorders, Muscular Dystrophy, Myasthenia Gravis or Marfan's Syndrome ENT: Negative Cataracts, Glaucoma, Blind, Retinal Detachment, Macular Degeneration, Ear Infection, Deafness or Eye Prosthesis ENDOCRINE: Negative Endocrine Disorders, Diabetes Mellitus Type 1 or Diabetes Mellitus Type 2 HEMATOLOGIC: Negative Blood Disorders, Anemia, Leukemia, Hemophilia, Thalassemia, Sickle Cell Disease or Clotting Problems PSYCHO/SOCIAL: Negative Schizophrenia, Recreational Drug Use, Bipolar Disorder, Depression or Anxiety OTHER HISTORY: Negative Hospitalization, Autoimmune Disease, Down Syndrome, Developmental Delay, Shingles, Falls, Blood Transfusions, Blood Transfusion Reaction, Anesthesia Reactions, Organ Transplant, Chemotherapy, Radiation Therapy, Hyperbaric Therapy, MRSA, VRSA, Vancomycin-Resistant Enterococci, Human Immunodeficiency Virus (HIV), Chicken Pox, Measles, Mumps, Rubella (Northern Irish Measles), Pertussis, Clostridium Difficile or Cancer Family History FAMILY HISTORY: Negative Family Psychiatric Problems, Family Respiratory Disorders, Family Cardiac Disorders, Family Gastrointestinal Problems, Family Cancer, Family Surgery or Family Anesthesia Reaction Surgical History SURGICAL: Positive Tonsillectomy; Negative Section or Organ Transplant Social History SMOKING STATUS: Never smoker SECOND HAND EXPOSURE: No ED Exam General Limitations: Present no limitations General appearance: Present alert and in no apparent distress Head Head exam: Present atraumatic and normocephalic Eye Eye exam: Present normal appearance, PERRL and EOMI ENT ENT exam: Present normal oropharynx and mucous membranes moist Neck Neck exam: Present normal inspection and full ROM Chest Chest inspection: Present normal inspection and symmetric chest wall rise Respiratory Respiratory exam: Present normal lung sounds bilaterally; Absent respiratory distress or wheezes Cardiovascular Cardiovascular exam: Present regular rate and +S1 Abdominal Exam Abdominal exam: Present soft; Absent tenderness Extremities Exam Extremities exam: Present normal inspection and full ROM Back Exam Back exam: Present normal inspection and full ROM; Absent CVA tenderness (R), CVA tenderness (L), muscle spasm, paraspinal tenderness, vertebral tenderness, sciatic notch tenderness (R), sciatic notch tenderness (L), straight leg raise (R) or straight leg raise (L) Neurological Exam Neurological exam: Present alert and normal gait; Absent motor sensory deficit Expanded Neurological Exam Motor strength - LUE: 5/5 Motor strength - RUE: 5/5 Motor strength - LLE: 5/5 Motor strength - RLE: 5/5 Psychiatric Psychiatric exam: Present normal affect Skin Skin exam: Present warm Course Quality Measures none Vital Signs Vital signs: Vital Signs Temperature 98.5 F 11/28/24 09:12 Pulse Rate 113 H 11/28/24 09:12 Respiratory Rate 18 11/28/24 09:12 Blood Pressure 122/82 11/28/24 09:12 Pulse Oximetry (%) 97 11/28/24 09:12 Oxygen Delivery Method Room Air 11/28/24 09:12 Pulse ox 97% on room air, within normal limits. Extremity Injury, Lower MDM Narrative MDM Narrative:: Very pleasant 24-year-old female currently 32 weeks presents for evaluation of spontaneous onset, acute left hip pain x 2 weeks. Denies trauma. Vital signs reassuring. No gross deformities on physical examination and no trauma decreases suspicion for grossly displaced fracture or dislocation at this time. No saddle paresthesia or bladder and bowel incontinence therefore less concern for cauda equina. No focal neurodeficits on examination. Patient ambulating well with steady gait. Using shared decision making with the patient we deferred x-rays at this time and will instead treat symptomatically with plan for close outpatient follow-up with OB within the week. Patient was given a note from work through next Monday and advised to follow-up with primary care within the next 24 to 48 hours for further evaluation and treatment. Patient stable at time of discharge. Patient data External records reviewed:: [facility] previous records Clinical information provided by:: patient Social determinants that could affect healthcare access:: none Patient has the following chronic illnesses:: None reported. How is presenting disease/condition affected by chronic disease/condition?: no chronic disease Evaluation data The following diagnostics were reviewed and interpreted by me:: other (specify) Lab and/or radiology exams considered but not ordered:: Considered not ordered. Interpretation Summary: Considered not ordered. Medications / Prescriptions Medications or Prescriptions considered but not ordered:: Considered not ordered. Medication administrations:: Considered not ordered. Consultations Consultation(s) initiated? (list below): No Diagnosis Extremity Injury, Lower Differential Diagnosis: fracture of hip and other (Low back strain, septic left hip, pyelonephritis.) Most likely diagnosis given after review of the tests above:: Left hip pain. Admission Indicated Admission indicated?: not indicated Admission Request Was there a request for admission?: No Disposition Plan Disposition Plan: Discharge Discharge Attestation Discharge Attestation: The patient and all family members were given an opportunity to ask questions and understood the discharge instructions. Discharge instructions specifically effects, indications for sooner follow up or return to the emergency department, and the expected course of current diagnosis. Patient condition: Stable Discharge Plan Plan Patient Disposition: HOME (Self Care) Discharge Disposition comment: stable Prescriptions/Referrals Prescriptions/Med Rec: No Action vitamin #45-iron-FA 28 mg iron- 1 mg tablet,chewable 1 tab PO QDAY Problem List Clinical Impression: Acute pain of left hip Patient/Caregiver Discharge Instructions Education Materials: ED Hip Strain Additional Instructions: Follow-up with OB by next Monday for reevaluation of left hip pain. Rest, hydrate well, take Tylenol as needed for back pain. Return to the ED if your symptoms worsen or change. Print Language: Salvadorean Stand Alone Forms: Tamika Award Info., Work/School Release, Patient Portal Info Letter [facility] Supervising Physician [employer] Supervising Physician: Dr. Vasquez
== END 2024-11-28 09:39 | disposition home or self-care (01) ==
LOC: SERX 09:46
PROVIDERS: Emergency Provider Emergency Medicine
DX: O99.891 Other specified diseases and conditions complicating pregnancy (principal); M25.552 Pain in left hip; Z3A.32 32 weeks gestation of pregnancy
CPT/HCPCS: 99281

== ENCOUNTER 2024-12-03 13:56 | Outpatient (AMB) | payer BC, SELFPAY ==
[2024-12-03 14:14] VITALS: BP 105/71; PULSE 109; RESP 17; TEMP 36.6; O2SAT 97; BMI 41.7
--- NOTE | 2024-12-03 14:14 | OBCLNT_ITS ---
Vital Signs 12/03/24 14:14 Height 1.6 m Height Method Stated Weight 106.764 kg Weight Measurement Method Standing Scale BMI 41.7 BP 105/71 Blood Pressure Source Automatic Cuff Blood Pressure Location Right Upper Arm Position Sitting Respiration 17 Pulse 109 H Pulse Source Monitor Temp 97.9 F Temp Source Temporal Artery Scan Pulse Oximetry (%) 97 Oxygen Delivery Method Room Air Allergies/Home Meds Allergies & Medications Allergies No Known Allergies Allergy (Verified 12/03/24 14:15) Medication Reconciliation vitamin no.45-iron-FA 28 mg iron-1 mg chewable tablet 1 tab PO QDAY 11/28/24 [History Confirmed 12/03/24] Intake Visit Data Collection New Patient or Established: Established Patient (seen at [facility] within 3 years) Reason for Visit:: OBC Seen by Clinical Staff ONLY (RN/MA): No Luggage Attendant Required: No Do You Feel Safe at Home: Yes Authorities Contacted: N/A PCP or OBGYN visit in last 3 months: Yes Date of Last PCP or OBGYN visit: 11/28/24 Hx Now: Yes Are you currently on any form of Control: No Pain Present Currently: Yes Pain Location: Hip Pain Scale Used: Vergara-Mcleod/Numerical Pain scale:: 4 Smoking Status Smoking Status: Never smoker Questionnaires Covid-19 Vaccine Questionnaire Has patient been vacinated for Covid-19 Have you been vacinated for Covid-19: No PHQ-9 PHQ-2 Over the last 2 weeks, how often have you been bothered by any of the following problems? 1. Little interest or pleasure in doing things: not at all 2. Feeling down, depressed, or hopeless: not at all Total score: 0 PHQ-9 3. Trouble falling or staying asleep, or sleeping too much: Not at all 4. Feeling tired or having little energy: Not at all 5. Poor appetite or overeating: Not at all 6. Feeling bad about yourself - or that you are a failure or have let yourself or your family down: Not at all 7. Trouble concentrating on things, such as reading the newspaper or watching television: Not at all 8. Moving or speaking so slowly that other people could have noticed? - Or the opposite - being so fidgety or restless that you have been moving around a lot more than usual: not at all 9. Thoughts that you would be better off or of hurting yourself in some way: Not at all Total score: 0 If you checked off any problems, how difficult have these problems made it for you to do your work, take care of things at home, or get along with other people?: not difficult at all Source: Developed by Drs. Aime Stevenson, Rina Garcia, Abel Field and colleagues, with an educational monique from [employer]. Depression screen completed yes Social History Living Situation History Marital Status: Life Partner Lives With: Family Housing: House Tobacco History Smoking Status: Never smoker Second Hand Smoke Exposure: No Alcohol History Alcohol Intake: Never Substance Use History Substance Use: NONE Domestic Abuse History Do You Feel Safe at Home: Yes FIRER LOW PRESSURE: Past Medical History Past Medical History: No Hx Neurological Disorders, No Hx Cardiac Disorders, No Hx Cancer, No Hx Blood Disorders, No Hx Anemia, No Hx Gastrointestinal Disorders, No Hx Renal Disease, No Hx Diabetes Mellitus Type 1 and No Hx Diabetes Mellitus Type 2 History of Present Illness HPI Narrative Monserrat Sam, , presents for routine visit at 32 weeks gestation. Patient has a history of prior shoulder dystocia and clavicle fracture. No contractions, LOF, VB and reports good FM. Denies GARCIA, VC, and epigastric pain. 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 - She desires to schedule a due to previous shoulder dystocia and clavicle fracture in prior . - Monserrat reports recent hip pain: - Evaluated in the ER - Resulted in being put off work for a week - She plans to go off work on December 23, 2024. - heartbeat noted to be normal at 135 bpm. Care OB Visit Log OB Flowsheet Initial Weight: Not Recorded Date -?-?-?-?-?-?-?-?-?-?-?-?- EGA Weight BP Alb Glu CTX Pres Fundal ht FHR Mov Dilation Station Effac ement Hx Notes Visit Note 08/20/24 -?-?-?-?-?-?-?-?-?-?-?-?- 17w 5d 106.311 kg 108/72 135 09/17/24 -?-?-?-?-?-?-?-?-?-?-?-?- 21w 5d 106.708 kg 132/72 145 - Go to [facility] for a glucose test - Fast before the test - Drink glucose solution at the lab - Blood will be drawn at 1 hour and 2 hours. - Call Dr. Roman's office to release y our records to us - Regular visit in 4 weeks - Earlier visit to discuss ultrasound re sults once we receive them - We will call you when we have the ultr asound report to schedule the earlier visit 10/22/24 -?-?-?-?-?-?-?-?-?-?-?-?- 26w 5d 108.664 kg 122/77 140 Asya, 24 y/o at 29w4d, presents for routine visit. Reports good movement, no contractions, and no complaints. History of one prior full-term vaginal delivery. Patient expresses clear desire for a primary section this . Gestational diabetes screen was negative (2-hour GTT: 87, 143, 119). FHR auscultated at [address] Mann is scheduled for tomorrow. Plan: Schedule elective primary secti on between 39?40 weeks gestation Submit booking request today Schedule ultrasound at 34 weeks for feta l weight and growth Follow-up in 2 weeks Begin weekly visits after 34 weeks Review echo results at next visit 11/19/24 -?-?-?-?-?-?-?-?-?-?-?-?- 30w 5d 108.465 kg 115/74 @ 28w, transferred care from [facility], requesting primary due to prior shoulder dystocia with clavicle fracture. Reports good FM, no CTX/LOF/VB. No GARCIA/VC/Epig pain. FHT 135 bpm. NAN 01/23/25. Plan: Schedule between 01/16?01/10 4 pending outside records. Ultrasound for growth on 12/05. Order CBC and RPR. Follow-up q2 weeks. 12/03/24 -?-?-?-?-?-?-?-?-?-?-?-?- 32w 5d 106.764 kg 105/71 unknown 32 135 active at 32w, NAN 01/23/25. Hx shoulder dystocia/clavicle fracture, desires C/S. No CTX/LOF/VB, good FM. Denies GARCIA/VC/epigastric pain. Recent hip pain, ER visit, off work 1 week. Schedule C/S 01/16 at 12:30pm (39w), request records from [facility], work clearance letter PRN, GBS culture end of December, FU 2w. Precautions reviewed. NAN Calculator Estimated Delivery Date Method Current WG Current Estimate 01/23/25 Ultrasound #1 33w 3d Other Estimates 01/03/25 LMP (Uncertain) 36w 2d Office Procedures OB Clinic LOC & Office Proc's Nursing/Assessment Patient Status: Established Patient OB Clinic Nursing Assessment: Medication Reconciliation, Update PMH in EMR and Vital Signs OB Clinic Coordination of Care: Complex Care and Chronic Disease 1-5, Consent,records obtained, informed consent, Education Simp Pt/Fam, Lab and Imaging orders and Staff clarify orders Special Needs: Heart tones Miscellaneous Interventions: Culture Specimen Collection Established Patient Charge Established Patient Point Assignment: 145 Established Patient Point Charge: EP Level 4 (120-155) Assessment & Plan Diagnosis / Problem List (1) Rh negative status during : Status: Acute Plan Problem List - , second trimester - History of shoulder dystocia - History of clavicle fracture in - Hip pain Assessment at approximately 32 weeks gestation based on NAN of January 23, 2025, confirmed by ultrasound on June 13, 2024. Patient desires scheduled due to history of shoulder dystocia and clavicle fracture in previous . heart rate auscultated at 135 bpm, within normal range. Patient reports recent hip pain resulting in ER-mandated work absence. records from previous provider pending. Too early for Group B Strep testing, which is typically performed at 36 weeks gestation. Plan - Schedule for January 16 at 12:30 PM (39 weeks gestation) - Call Labor and Delivery to block date - Request records from [facility] ([facility]) - Provide letter clearing patient to return to work if needed - Update records with confirmed due date of January 23 based on June 13, 2024 ultrasound - Send over request form for - Follow up in two weeks - Group B Strep culture due towards end of Linh 1. Progress Reviewed gestational age, growth, and heart rate. Planned frequent visits (every 2 weeks until 36 weeks, then weekly). 2. Instructed patient to monitor movements and report decreases immediately. 3. Testing Counseled on routine third-trimester labs per guidelines. Discussed potential need for ultrasound or monitoring based on risk factors. 4. Preeclampsia Precaution Educated on preeclampsia signs: severe headache, vision changes, right upper quadrant pain, sudden swelling. Advised urgent reporting of symptoms and discussed blood pressure monitoring if high risk. 5. Labor Precautions Reviewed labor signs: regular contractions, pelvic pressure, back pain, bleeding, or fluid leakage. Instructed to seek immediate care for these symptoms. 6. Lifestyle and Delivery Preparation Reinforced vitamins, nutrition, and safe activity. Discussed plan, pain management, and . Advised on labor preparation (e.g., hospital bag) and expectations. 7. Psychosocial Support Assessed emotional well-being and offered resources for mental health or parenting support.
== END 2024-12-03 15:11 | disposition home or self-care (01) ==
LOC: HODSOBC 13:56
PROVIDERS: PCP Obstetrics & Gynecology; Referring Provider Obstetrics & Gynecology; Supervising Provider Obstetrics & Gynecology; Visit Provider Obstetrics & Gynecology
DX: O09.293 Supervision of pregnancy with other poor reproductive or obstetric history, third trimester (principal); O34.219 Maternal care for unspecified type scar from previous cesarean delivery; Z3A.32 32 weeks gestation of pregnancy; Z87.59 Personal history of other complications of pregnancy, childbirth and the puerperium
CPT/HCPCS: 99214; G0463

== ENCOUNTER → 2024-12-03 | Outpatient (CLI) | payer BC, SELFPAY ==
[2024-12-03 14:22] LABS: Basophils % (Auto) 0 % (0-2.5); Eosinophils # (Auto) 0.3 Thou/mm3 (0.0-0.5); Eosinophils % (Auto) 3 % (0-10); Hematocrit 31.2 % (36.0-46.0); Hemoglobin 10.8 g/dL (12.0-16.0); Immature Granulocytes % (Auto) 1 % (0-0); Immature Granulocytes Auto 0.07 Thou/mm3 (0.00-0.00); Lymphocytes # (Auto) 1.6 Thou/mm3 (1.0-4.8); Lymphocytes % (Auto) 15 % (10-50); Mean Corpuscular HGB Conc 34.6 g/dl (31.0-37.0); Mean Corpuscular Hemoglobin 29.6 pg (25.0-35.0); Mean Corpuscular Volume 86 fL (80-100); Monocytes # (Auto) 0.8 Thou/mm3 (0.0-0.8); Monocytes % (Auto) 7 % (0-12); Neutrophils # (Auto) 8.2 Thou/mm3 (1.8-7.7); Neutrophils % (Auto) 75 % (37-80); Nucleated Red Blood Cell % 0 /100 WBC (0); Platelet Count 319 Thou/mm3 (140-440); RDW Standard Deviation 44.6 fL (36.4-46.3); Red Blood Count 3.65 Miln/mm3 (4.00-5.20)
[2024-12-03 15:03] LABS: Syphilis Nonreactive (Nonreactive)
== END | disposition home or self-care (01) ==
PROVIDERS: Referring Provider Obstetrics & Gynecology; Visit Provider Obstetrics & Gynecology
DX: O09.92 Supervision of high risk pregnancy, unspecified, second trimester (principal); O99.212 Obesity complicating pregnancy, second trimester; Z67.91 Unspecified blood type, Rh negative; Z3A.00 Weeks of gestation of pregnancy not specified
CPT/HCPCS: 36415; 85025; 86780

== ENCOUNTER 2024-12-27 11:33 | Outpatient (AMB) | payer BC, SELFPAY ==
[2024-12-27 11:44] VITALS: BP 118/73; PULSE 111; RESP 17; TEMP 36.6; O2SAT 95; BMI 41.8
--- NOTE | 2024-12-27 11:44 | AMB.OBVISIT ---
Vital Signs 12/27/24 11:44 Height 1.6 m Height Method Measured Weight 107.218 kg Weight Measurement Method Standing Scale BMI 41.8 BP 118/73 Blood Pressure Source Automatic Cuff Blood Pressure Location Right Upper Arm Position Sitting Respiration 17 Pulse 111 H Pulse Source Monitor Temp 97.9 F Temp Source Temporal Artery Scan Pulse Oximetry (%) 95 Oxygen Delivery Method Room Air Allergies/Home Meds Allergies & Medications Allergies No Known Allergies Allergy (Verified 12/27/24 11:45) Medication Reconciliation vitamin no.45-iron-FA 28 mg iron-1 mg chewable tablet 1 tab PO QDAY 11/28/24 [History Confirmed 12/27/24] Intake Visit Data Collection New Patient or Established: Established Patient (seen at [facility] within 3 years) Reason for Visit:: OBC Consent obtained for Telemed Visit: No Seen by Clinical Staff ONLY (RN/MA): No Metal Machine Setter Required: No Do You Feel Safe at Home: Yes Authorities Contacted: N/A PCP or OBGYN visit in last 3 months: Yes Date of Last PCP or OBGYN visit: 12/03/24 Hx Now: Yes Are you currently on any form of Control: No Pain Present Currently: No Pain Scale Used: Vergara-Mcleod/Numerical Pain scale:: 0 Smoking Status Smoking Status: Never smoker Questionnaires Covid-19 Vaccine Questionnaire Has patient been vacinated for Covid-19 Have you been vacinated for Covid-19: No PHQ-9 PHQ-2 Over the last 2 weeks, how often have you been bothered by any of the following problems? 1. Little interest or pleasure in doing things: not at all PHQ-9 8. Moving or speaking so slowly that other people could have noticed? - Or the opposite - being so fidgety or restless that you have been moving around a lot more than usual: not at all Source: Developed by Drs. Aime Stevenson, Rina Garcia, Abel Field and colleagues, with an educational monique from [employer]. 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: Past Medical History Past Medical History: No Hx Neurological Disorders, No Hx Cardiac Disorders, No Hx Cancer, No Hx Blood Disorders, No Hx Anemia, No Hx Gastrointestinal Disorders, No Hx Renal Disease, No Hx Diabetes Mellitus Type 1 and No Hx Diabetes Mellitus Type 2 Care OB Visit Log OB Flowsheet Initial Weight: Not Recorded Date <del>?</del> EGA Weight BP Alb Glu CTX Pres Fundal ht FHR Mov Dilation Station Effacement Hx Notes Visit Note 08/20/24 <del>?</del> 17w 5d 106.311 kg 108/72 135 09/17/24 <del>?</del> 21w 5d 106.708 kg 132/72 145 - Go to [facility] for a glucose test - Fast before the test - Drink glucose solution at the lab - Blood will be drawn at 1 hour and 2 hours. - Call Dr. Roman's office to release your records to us - Regular visit in 4 weeks - Earlier visit to discuss ultrasound results once we receive them - We will call you when we have the ultrasound report to schedule the earlier visit 10/22/24 <del>?</del> 26w 5d 108.664 kg 122/77 140 Asya, 24 y/o at 29w4d, presents for routine visit. Reports good movement, no contractions, and no complaints. History of one prior full-term vaginal delivery. Patient expresses clear desire for a primary section this . Gestational diabetes screen was negative (2-hour GTT: 87, 143, 119). FHR auscultated at [address] Mann is scheduled for tomorrow. Plan: Schedule elective primary section between 39?40 weeks gestation Submit booking request today Schedule ultrasound at 34 weeks for weight and growth Follow-up in 2 weeks Begin weekly visits after 34 weeks Review echo results at next visit 11/19/24 <del>?</del> 30w 5d 108.465 kg 115/74 @ 28w, transferred care from [facility], requesting primary due to prior shoulder dystocia with clavicle fracture. Reports good FM, no CTX/LOF/VB. No GARCIA/VC/Epig pain. FHT 135 bpm. NAN 01/23/25. Plan: Schedule between 01/16?01/23 pending outside records. Ultrasound for growth on 12/05. Order CBC and RPR. Follow-up q2 weeks. 12/03/24 <del>?</del> 32w 5d 106.764 kg 105/71 unknown 32 135 active at 32w, NAN 01/23/25. Hx shoulder dystocia/clavicle fracture, desires C/S. No CTX/LOF/VB, good FM. Denies GARCIA/VC/epigastric pain. Recent hip pain, ER visit, off work 1 week. Schedule C/S 01/16 at 12:30pm (39w), request records from [facility], work clearance letter PRN, GBS culture end of December, FU 2w. Precautions reviewed. 12/27/24 <del>?</del> 36w 1d 107.218 kg 118/73 occasional unknown 36 145 active at 36w1d presenting for routine visit. FHR 145. GBS swab obtained today. Scheduled for primary on 01/16/25 at 12:30. Patient interested in tubal ligation; consent signed 12/10/24 after counseling on alternatives including IUD. Plan: proceed with scheduled ; follow up first week of January. NAN Calculator Estimated Delivery Date Method Current WG Current Estimate 01/23/25 Ultrasound #1 36w 1d Other Estimates 01/03/25 LMP (Uncertain) 39w 0d Office Procedures OB Clinic LOC & Office Proc's Nursing/Assessment Patient Status: Established Patient OB Clinic Nursing Assessment: Medication Reconciliation, Update PMH in EMR and Vital Signs OB Clinic Coordination of Care: Complex Care and Chronic Disease 1-5, Consent,records obtained, informed consent, Education Simp Pt/Fam and 4+ Authorizations needed Special Needs: Heart tones Established Patient Charge Established Patient Point Assignment: 130 Established Patient Point Charge: EP Level 4 (120-155) Assessment & Plan Diagnosis / Problem List (1) Rh negative status during : Status: Acute (2) Supervision of high risk , unspecified, third trimester: Status: Acute
== END 2024-12-27 12:12 | disposition home or self-care (01) ==
LOC: HODSOBC 11:33
PROVIDERS: Supervising Provider Obstetrics & Gynecology; Visit Provider Obstetrics & Gynecology
DX: O09.293 Supervision of pregnancy with other poor reproductive or obstetric history, third trimester (principal); Z87.59 Personal history of other complications of pregnancy, childbirth and the puerperium; Z36.85 Encounter for antenatal screening for Streptococcus B; Z78.9 Other specified health status; Z3A.36 36 weeks gestation of pregnancy
CPT/HCPCS: 99214; G0463

== ENCOUNTER 2025-01-10 13:51 | Outpatient (AMB) | payer BC, SELFPAY ==
[2025-01-10 14:07] VITALS: BP 110/75; PULSE 123; RESP 17; TEMP 36.9; O2SAT 96; BMI 41.5
--- NOTE | 2025-01-10 14:07 | OBCLNT_ITS ---
Vital Signs 01/10/25 14:07 Height 1.6 m Height Method Stated Weight 106.254 kg Weight Measurement Method Standing Scale BMI 41.5 BP 110/75 Blood Pressure Source Automatic Cuff Blood Pressure Location Right Upper Arm Position Sitting Respiration 17 Pulse 123 H Pulse Source Monitor Temp 98.4 F Temp Source Temporal Artery Scan Pulse Oximetry (%) 96 Oxygen Delivery Method Room Air Allergies/Home Meds Allergies & Medications Allergies No Known Allergies Allergy (Verified 01/17/25 01:27) Medication Reconciliation vitamins no.45-iron-FA 28 mg iron-1 mg chewable tablet 1 tab PO QDAY 11/28/24 [History Confirmed 01/16/25] Intake Visit Data Collection New Patient or Established: Established Patient (seen at [facility] within 3 years) Reason for Visit:: OBC 38WEEKS Seen by Clinical Staff ONLY (RN/MA): No Guest Experience Representative Required: No Do You Feel Safe at Home: Yes Authorities Contacted: N/A PCP or OBGYN visit in last 3 months: Yes Date of Last PCP or OBGYN visit: 12/27/24 Hx Now: Yes Are you currently on any form of Control: No Pain Present Currently: No Pain Scale Used: Vergara-Mcleod/Numerical Pain scale:: 0 Smoking Status Smoking Status: Never smoker Questionnaires Covid-19 Vaccine Questionnaire Has patient been vacinated for Covid-19 Have you been vacinated for Covid-19: No PHQ-9 PHQ-2 Over the last 2 weeks, how often have you been bothered by any of the following problems? 1. Little interest or pleasure in doing things: not at all 2. Feeling down, depressed, or hopeless: not at all Total score: 0 PHQ-9 3. Trouble falling or staying asleep, or sleeping too much: Not at all 4. Feeling tired or having little energy: Not at all 5. Poor appetite or overeating: Not at all 6. Feeling bad about yourself - or that you are a failure or have let yourself or your family down: Not at all 7. Trouble concentrating on things, such as reading the newspaper or watching television: Not at all 8. Moving or speaking so slowly that other people could have noticed? - Or the opposite - being so fidgety or restless that you have been moving around a lot more than usual: not at all 9. Thoughts that you would be better off or of hurting yourself in some way: Not at all Total score: 0 If you checked off any problems, how difficult have these problems made it for you to do your work, take care of things at home, or get along with other people?: not difficult at all Source: Developed by Drs. Aime Stevenson, Rina Garcia, Abel Field and colleagues, with an educational monique from [employer]. 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: Past Medical History Past Medical History: No Hx Neurological Disorders, No Hx Cardiac Disorders, No Hx Cancer, No Hx Blood Disorders, No Hx Anemia, No Hx Gastrointestinal Disorders, No Hx Renal Disease, No Hx Diabetes Mellitus Type 1 and No Hx Diabetes Mellitus Type 2 Care OB Visit Log OB Flowsheet Initial Weight: Not Recorded Date -?-?-?-?-?-?-?-?-?-?-?-?- EGA Weight BP Alb Glu CTX Pres Fundal ht FHR Mov Dilation Station Effacement Hx Notes Visit Note 08/20/24 -?-?-?-?-?-?-?-?-?-?-?-?- 17w 5d 106.311 kg 108/72 135 09/17/24 -?-?-?-?-?-?-?-?-?-?-?-?- 21w 5d 106.708 kg 132/72 145 - Go to [facility] for a glucose test - Fast before the test - Drink glucose solution at the lab - Blood will be drawn at 1 hour and 2 hours. - Call Dr. Roman's office to release y our records to us - Regular visit in 4 weeks - Earlier visit to discuss ultrasound re sults once we receive them - We will call you when we have the ultr asound report to schedule the earlier visit 10/22/24 -?-?-?-?-?-?-?-?-?-?-?-?- 26w 5d 108.664 kg 122/77 140 Asya, 24 y/o at 29w4d, presents for routine visit. Reports good movement, no contractions, and no complaints. History of one prior full-term vaginal delivery. Patient expresses clear desire for a primary section this . Gestational diabetes screen was negative (2-hour GTT: 87, 143, 119). FHR auscultated at [address] Mann is scheduled for tomorrow. Plan: Schedule elective primary secti on between 39?40 weeks gestation Submit booking request today Schedule ultrasound at 34 weeks for feta l weight and growth Follow-up in 2 weeks Begin weekly visits after 34 weeks Review echo results at next visit 11/19/24 -?-?-?-?-?-?-?-?-?-?-?-?- 30w 5d 108.465 kg 115/74 @ 28w, transferred care from [facility], requesting primary due to prior shoulder dystocia with clavic le fracture. Reports good FM, no CTX/LOF/VB. No GARCIA/VC/Epig pain. FHT 135 bpm. NAN 01/23/25. Plan: Schedule between 01/16?01/10 4 pending outside records. Ultrasound for growth on 12/05. Order CBC and RPR. Follow-up q2 weeks. 12/03/24 -?-?-?-?-?-?-?-?-?-?-?-?- 32w 5d 106.764 kg 105/71 unknown 32 135 active at 32w, NAN 01/23/25. Hx shoulder dystocia/clavicle fracture, desires C/S. No CTX/LOF/VB, good FM. Denies GARCIA/VC/epigastric pain. Recent hip pain, ER visit, off work 1 week. Schedule C/S 01/16 at 12:30pm (39w), request records from [facility], work clearance letter PRConi, GBS culture end of December, FU 2w. Precautions reviewed. 12/27/24 -?-?-?-?-?-?-?-?-?-?-?-?- 36w 1d 107.218 kg 118/73 occasional unknown 36 145 active at 36w1d presenting for routine visit. FHR 145. GBS swab obtained today. Scheduled for primary on 01/16/25 at 12:30. Patient interested in tubal ligation; consent signed 12/10/24 after counseling on alternatives including IUD. Plan: proceed with scheduled ; follow up first week of January. 01/10/25 -?-?-?-?-?-?-?-?-?-?-?--?- 38w 1d 106.254 kg 110/75 absent cephalic 38 15 0 active - Monserrat Sam is a 24-year-old female, 2 para 1, at 38 weeks and 1 day gestation, presenting for routine care. - Patient is scheduled for a repeat C-se ction on 01/17/2025 at 12:30 PM. - She reports: - No contractions - No issues - Active movement - Patient denies any specific questions or concerns. - Repeat scheduled for 01-17-2025 at 12:30 PM - Patient to check in at 10:00 AM on the day of surgery - No food or water after midnight before the surgery - If contractions occur every 10 minutes or closer prior to , patient to come in for earlier delivery - Make post-op appointment 2 weeks after for perineum removal and examination NAN Calculator Estimated Delivery Date Method Current WG Current Estimate 01/23/25 Ultrasound #1 43w 3d Other Estimates 01/03/25 LMP (Uncertain) 46w 2d Office Procedures OB Clinic LOC & Office Proc's Nursing/Assessment Patient Status: Established Patient OB Clinic Nursing Assessment: Medication Reconciliation, Update PMH in EMR and Vital Signs OB Clinic Coordination of Care: Complex Care and Chronic Disease 1-5, Consent,records obtained, informed consent, Education Simp Pt/Fam and Staff clarify orders Special Needs: Heart tones Established Patient Charge Established Patient Point Assignment: 115 Established Patient Point Charge: EP Level 3 (80-115) Assessment & Plan Diagnosis / Problem List (1) Supervision of high risk , unspecified, third trimester: Status: Acute
== END 2025-01-10 14:39 | disposition home or self-care (01) ==
LOC: HODSOBC 13:51
PROVIDERS: PCP Obstetrics & Gynecology; Referring Provider Obstetrics & Gynecology; Supervising Provider Obstetrics & Gynecology; Visit Provider Obstetrics & Gynecology
DX: O09.293 Supervision of pregnancy with other poor reproductive or obstetric history, third trimester (principal); O34.219 Maternal care for unspecified type scar from previous cesarean delivery; Z3A.38 38 weeks gestation of pregnancy
CPT/HCPCS: 99213; G0463

== ENCOUNTER 2025-01-16 10:27 | Inpatient (IN) | payer BC, SELFPAY ==
[2025-01-16] VITALS (11 sets, daily range): BP systolic 102–131; BP diastolic 53–76; PULSE 62–88; RESP 16–20; TEMP 36.7–36.9; O2SAT 96–99; BMI 41.6
[2025-01-16] MEDS: RINGERS LACTATED 1000 ML 1,000 ML 100 ML IV ×2 (11:05→12:20)
[2025-01-16 11:32] LABS: Basophils # (Auto) 0.0 Thou/mm3 (0.0-0.2); Basophils % (Auto) 1 % (0-2.5); Eosinophils # (Auto) 0.3 Thou/mm3 (0.0-0.5); Eosinophils % (Auto) 3 % (0-10); Hematocrit 31.4 % (36.0-46.0); Hemoglobin 10.3 g/dL (12.0-16.0); Immature Granulocytes Auto 0.03 Thou/mm3 (0.00-0.00); Lymphocytes # (Auto) 1.8 Thou/mm3 (1.0-4.8); Lymphocytes % (Auto) 21 % (10-50); Mean Corpuscular HGB Conc 32.8 g/dl (31.0-37.0); Mean Corpuscular Hemoglobin 28.5 pg (25.0-35.0); Mean Corpuscular Volume 87 fL (80-100); Monocytes # (Auto) 0.7 Thou/mm3 (0.0-0.8); Monocytes % (Auto) 8 % (0-12); Neutrophils # (Auto) 5.9 Thou/mm3 (1.8-7.7); Neutrophils % (Auto) 68 % (37-80); Nucleated Red Blood Cell # 0.00 Thou/mm3 (0.00-0.00); Nucleated Red Blood Cell % 0 /100 WBC (0); Platelet Count 319 Thou/mm3 (140-440); RDW Standard Deviation 46.7 fL (36.4-46.3); Red Blood Count 3.61 Miln/mm3 (4.00-5.20); White Blood Count 8.8 Thou/mm3 (3.6-11.0)
[2025-01-16 12:07] LABS: Syphilis Nonreactive (Nonreactive)
--- NOTE | 2025-01-16 12:15 | PD.LDHP ---
Documentation for date of: 01/16/25 OB Labor/Induct. HPI History of Present Illness Chief complaint: Schedule primary : 2 Para: 1 Term pregnancies: 1 pregnancies: 0 Living children: 1 History of Abortions: Spontaneous and Elective: 0 History of sections: No History of : No NAN: 01/23/25 History of present illness: 24-year-old 2 para 1 at 39 weeks presents for scheduled primary low-transverse with bilateral tubal ligation Patient elected to have a because of history of shoulder dystocia with clavicle fracture during her previous delivery Patient also elected to have a surgical sterilization. She was given multiple opportunities to consider her decision including conversation about high rate of regret at her age and the risk of irreversibility. After consideration of all information and being given the opportunity to ask questions she still elected to proceed with the salpingectomy. Denies any contractions, leakage of fluid or vaginal bleeding and reports good movements Labs Labs: Positive: Group Beta Strep and Negative: RPR, Hepatitis B, Rubella Titre, HIV, Chlamydia and Gonorrhea Review of Systems Review of Systems Systems Reviewed: All systems reviewed, normal except as documented Past Medical History Surgical History SURGICAL: Negative Section Meds Home Medications and Allergies Home Medications ?Medication ?Instructions ?Recorded ?Confirmed ?Type vitamin no.45-iron-FA 28 1 tab PO QDAY 11/28/24 01/10/25 History mg iron-1 mg chewable tablet Allergies Allergy/AdvReac Type Severity Reaction Status Date / Time No Known Allergies Allergy Verified 01/10/25 14:08 OB Exam Constitutional Constitutional: no acute distress Routine HEENT Exam Head: Present normocephalic and atraumatic Eye: Present EOMI and PERRL ENT: Present mucous membranes moist Routine Neck Exam Neck: Present supple and trachea midline Routine Cardiovascular Exam Cardiovascular: Present RRR Routine Abdominal Exam Abdominal: Present soft and normoactive bowel sounds Detailed Labor and Delivery Exam Baseline heart rate: 145 monitor accelerations: 15x15 monitor decelerations: None Routine Extremities Exam Extremities: Present full ROM Routine Skin Exam Skin: Present intact, dry and warm Routine Neurological Exam Neurological: Present alert, oriented X3 and CN II-XII intact Routine Psychiatric Exam Psychiatric: Present normal affect and normal thought process OB Results Labs 01/16/25 11:05 OB Assessment & Plan Assessment and Plan (1) Supervision of high risk , unspecified, third trimester: Status: Acute Assessment and plan: Admit to inpatient status for primary low transverse IV access, CBC, type and screen, LR at 125, RPR, COVID-19 test GBS negative Ancef 2 g prior to surgery start Dixon catheter to drainage SCDs for DVT prophylaxis Anesthesia to preop for spinal anesthesia Scheduled for surgery. (2) delivery delivered: Status: Acute (3) Rh negative status during : Status: Acute
[2025-01-16] MEDS: ceFAZolin/D5W 2 GM IV 2 GM/100 ML BAG IV (12:18)
[2025-01-16] MEDS: METOCLOPRAMIDE INJ 5 MG/ML VIAL 2 ML 10 MG IVP (12:19)
[2025-01-16] MEDS: FAMOTIDINE INJ 10 MG/ML VIAL 2 ML 20 MG IV (12:19)
--- NOTE | 2025-01-16 13:39 | PD.GYNPROC ---
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 With the patient in the supine position under spinal anesthesia, the abdomen and perineum were prepped in standard sterile fashion and a Dixon catheter was placed for continuous drainage. After applying sterile drapes and confirming anesthesia adequacy, a Pfannenstiel incision was made through the subcutaneous tissue to the rectus fascia. The fascia was incised bilaterally off the midline, and the rectus muscles were gently to expose and bluntly enter the peritoneum. The peritoneal opening was extended and an Dragan O-ring retractor was placed to improve visualization. A low transverse Abebe Jung uterine incision was made in the lower segment, carefully avoiding the bladder. Uterine entry was achieved bluntly, and the opening was extended to allow rupture of the amniotic membranes and release of clear amniotic fluid. The fetus, in vertex position, was delivered after gently elevating the head and releasing a single nuchal cord loop; the remainder of the body was delivered with gentle fundal pressure. The umbilical cord was doubly clamped, divided, and the infant was transferred to the team, with cord gas samples obtained subsequently. The placenta was delivered by gentle traction, and the uterine cavity was thoroughly cleaned of blood, debris, and membranes. The hysterotomy was closed in two layers using 1 Monocryl suture. The first layer approximated the uterine muscle in a running locked fashion, while the second imbricated the myometrium and serosa. After confirming hemostasis at the hysterotomy site, attention was directed to bilateral salpingectomies. Each fallopian tube was elevated with a Shelby clamp, the mesosalpinx exposed, and the salpingectomy was performed using the Enaseal vessel sealing device, with both specimens sent for pathological examination. Hemostasis at the salpingectomy sites was confirmed. The Dragan retractor was then removed, and the peritoneal edges and rectus muscles were reapproximated. The rectus fascia was closed in a running fashion using 0 Vicryl suture. Following copious irrigation of the subcutaneous tissue with warm normal saline and cauterization of bleeding points, the subcutaneous fat was closed with 3-0 Vicryl. The skin was closed using the 4-0 Monocryl in a subcuticular manner. The incision was subsequently cleaned and dressed with Dermabond Prenio followed by a pressure dressing.The patient was then undraped, her abdomen and back were cleaned, and she was transferred to the recovery room in stable and awake condition. The procedure was well tolerated without complications, and all instrument, sponge, and laparotomy counts were correct. Estimated blood loss (ml): 600 Complications: none Surgical staff Operation Date: 01/16/25 13:11 Case Staff EMAIL MARKETING SPECIALIST: Chase Aragon RN First Assistant: Ck Snowden Diagnosis Discharge Diagnosis (1) delivery delivered: Status: Acute (2) Rh negative status during : Status: Acute Problem List Completed Was Problem List Reviewed/Reconciled?: Yes
--- NOTE | 2025-01-16 13:41 | PD.LDDELS ---
Data ([place]) Data Hx Section: No : 2 Term: 1 : 0 Livin Abortions: Spontaneous & Theraputic: 0 Delivery Data ([place]) Delivery Data Delivered by: Anesthesia Type Anesthesia type: Spinal
[2025-01-16] MEDS: OXYTOCIN in NS 20 units 20 UNIT/1,000 ML BAG 125 UNIT IV ×2 (15:02→23:24)
[2025-01-16] MEDS: KETOROLAC INJ 30 MG/ML VIAL IVP (20:05)
[2025-01-17] MEDS: KETOROLAC INJ 30 MG/ML VIAL IVP ×2 (02:14→08:12)
[2025-01-17 05:04] VITALS: BP 104/66; PULSE 76; RESP 18; TEMP 36.7; O2SAT 98
[2025-01-17 05:48] LABS: Basophils # (Auto) 0.1 Thou/mm3 (0.0-0.2); Basophils % (Auto) 0 % (0-2.5); Eosinophils # (Auto) 0.2 Thou/mm3 (0.0-0.5); Eosinophils % (Auto) 2 % (0-10); Hematocrit 27.6 % (36.0-46.0); Hemoglobin 9.1 g/dL (12.0-16.0); Immature Granulocytes Auto 0.04 Thou/mm3 (0.00-0.00); Lymphocytes # (Auto) 2.2 Thou/mm3 (1.0-4.8); Lymphocytes % (Auto) 18 % (10-50); Mean Corpuscular HGB Conc 33.0 g/dl (31.0-37.0); Mean Corpuscular Hemoglobin 29.2 pg (25.0-35.0); Mean Corpuscular Volume 89 fL (80-100); Monocytes # (Auto) 1.3 Thou/mm3 (0.0-0.8); Monocytes % (Auto) 11 % (0-12); Neutrophils # (Auto) 8.1 Thou/mm3 (1.8-7.7); Neutrophils % (Auto) 68 % (37-80); Nucleated Red Blood Cell # 0.00 Thou/mm3 (0.00-0.00); Nucleated Red Blood Cell % 0 /100 WBC (0); Platelet Count 265 Thou/mm3 (140-440); RDW Standard Deviation 47.9 fL (36.4-46.3); Red Blood Count 3.12 Miln/mm3 (4.00-5.20); White Blood Count 11.9 Thou/mm3 (3.6-11.0)
--- NOTE | 2025-01-17 07:48 | PD.LDPPPRG ---
Subjective Subjective Interval history: The patient is a 24-year-old G2 now P2002 status post primary with tubal ligation yesterday around lunchtime by Dr. Hemphill. Patient has a history of a shoulder dystocia with her first baby. Her son weighed 9 pounds 10 ounces. Today she is resting in bed. She states she is having some pain. She is eating tolerating a general diet and passing flatus. Her mother is at bedside. She denies heavy vaginal bleeding fevers or chills. We just need to work on pain control with oral pain medication today. Exam Vital Signs Temp Pulse Resp BP Pulse Ox O2 Del Method 98.0 F 76 18 104/66 98 Room Air 01/17/25 05:04 01/17/25 05:04 01/17/25 05:04 01/17/25 05:04 01/17/25 05:04 01/17/25 05:04 Narrative Exam Fundus is firm nontender dressing is clean dry and intact extremities show no significant edema or erythema. Objective Labs 01/17/25 05:29 Labs: Laboratory Results - last 24 hr 01/16/25 01/17/25 11:05 05:29 WBC 8.8 11.9 H RBC 3.61 L 3.12 L Hgb 10.3 L 9.1 L Hct 31.4 L 27.6 L MCV 87 89 MCH 28.5 29.2 MCHC 32.8 33.0 RDW Std Deviation 46.7 H 47.9 H Plt Count 319 265 D Neut % (Auto) 68 68 Lymph % (Auto) 21 18 [place] % (Auto) 8 11 Eos % (Auto) 3 2 Baso % (Auto) 1 0 Neut # (Auto) 5.9 8.1 H Lymph # (Auto) 1.8 2.2 [place] # (Auto) 0.7 1.3 H Eos # (Auto) 0.3 0.2 Baso # (Auto) 0.0 0.1 Immature Gran # (Auto) 0.03 H 0.04 H Absolute Nucleated RBC 0.00 0.00 Immature Gran % 0 0 Nucleated RBC % 0 0 Syphilis Serology Nonreactive Blood Type A Negative Rho(D) IG Studies Ready Antibody Screen POSITIVE Antibody Identification Cancelled Maternal Bleed Negative Blood Bank Wristband ID Yes Assessment & Plan Problem List (1) delivery delivered: Problem details: Patient is doing well. Increase ambulation. Oral pain medication. Recheck hemoglobin in morning as it is 9.1 today. Status: Acute (2) Rh negative status during : Status: Acute Time Spent With Patient Time: Total time spent is greater than 50% in coordination of care (as documented) at patient's floor/unit and/or counseling patient:
[2025-01-17 08:00] VITALS: BP 122/79; PULSE 79; RESP 16; TEMP 36.7; O2SAT 99
[2025-01-17] MEDS: DIPHTH,PERTUSS(ACELL),TET VAC 0.5 ML SYR- ADULT IMi (08:11)
[2025-01-17] MEDS: DOCUSATE SOD 100 MG CAPSULE PO (08:12)
[2025-01-17 08:13] VITALS: BP 122/79; PULSE 79; RESP 18; TEMP 36.7
[2025-01-17] MEDS: IBUPROFEN TAB 400 MG TABLET 800 MG PO ×2 (11:38→20:10)
[2025-01-17 16:30] VITALS: BP 120/78; PULSE 87; RESP 18; TEMP 37.2; O2SAT 98
[2025-01-17] MEDS: HYDROcodone/APAP 5/325 TABLET 1 TAB PO (16:46)
[2025-01-17 19:05] VITALS: BP 115/71; PULSE 109; RESP 16; TEMP 36.8
--- NOTE | 2025-01-17 20:51 | PD.LDPPPRG ---
Subjective Subjective Interval history: The patient is a 24-year-old -0-0-2 postop day #1 status post primary with tubal ligation. This was performed yesterday morning by Dr. Segal. This is for a history of a shoulder dystocia in the past. Patient this morning is resting comfortably in bed with her mother at the bedside. She is working on her pain control. Exam Vital Signs Temp Pulse Resp BP Pulse Ox O2 Del Method 98.2 F 109 H 16 115/71 98 Room Air 01/17/25 19:05 01/17/25 19:05 01/17/25 19:05 01/17/25 19:05 01/17/25 16:30 01/17/25 16:30 Objective Labs 01/17/25 05:29 Labs: Laboratory Results - last 24 hr 01/16/25 01/17/25 11:05 05:29 WBC 11.9 H RBC 3.12 L Hgb 9.1 L Hct 27.6 L MCV 89 MCH 29.2 MCHC 33.0 RDW Std Deviation 47.9 H Plt Count 265 D Neut % (Auto) 68 Lymph % (Auto) 18 [place] % (Auto) 11 Eos % (Auto) 2 Baso % (Auto) 0 Neut # (Auto) 8.1 H Lymph # (Auto) 2.2 [place] # (Auto) 1.3 H Eos # (Auto) 0.2 Baso # (Auto) 0.1 Immature Gran # (Auto) 0.04 H Absolute Nucleated RBC 0.00 Immature Gran % 0 Nucleated RBC % 0 Blood Type A Negative Rho(D) IG Studies Ready Antibody Screen POSITIVE Antibody Identification Cancelled Maternal Bleed Negative Blood Bank Wristband ID Yes Assessment & Plan Problem List (1) delivery delivered: Problem details: Patient is doing well. Increase ambulation. Oral pain medication. Recheck hemoglobin in morning as it is 9.1 today. Status: Acute (2) Rh negative status during : Status: Acute Time Spent With Patient Time: Total time spent is greater than 50% in coordination of care (as documented) at patient's floor/unit and/or counseling patient:
[2025-01-17 21:30] VITALS: PULSE 82; RESP 18
[2025-01-18 03:39] VITALS: BP 106/61; PULSE 69; RESP 14; TEMP 36.6; O2SAT 97
[2025-01-18 06:05] LABS: Basophils # (Auto) 0.0 Thou/mm3 (0.0-0.2); Basophils % (Auto) 0 % (0-2.5); Eosinophils # (Auto) 0.4 Thou/mm3 (0.0-0.5); Eosinophils % (Auto) 3 % (0-10); Hematocrit 27.6 % (36.0-46.0); Hemoglobin 8.9 g/dL (12.0-16.0); Immature Granulocytes Auto 0.04 Thou/mm3 (0.00-0.00); Lymphocytes # (Auto) 2.5 Thou/mm3 (1.0-4.8); Lymphocytes % (Auto) 24 % (10-50); Mean Corpuscular HGB Conc 32.2 g/dl (31.0-37.0); Mean Corpuscular Hemoglobin 29.1 pg (25.0-35.0); Mean Corpuscular Volume 90 fL (80-100); Monocytes # (Auto) 0.8 Thou/mm3 (0.0-0.8); Monocytes % (Auto) 8 % (0-12); Neutrophils # (Auto) 6.9 Thou/mm3 (1.8-7.7); Neutrophils % (Auto) 64 % (37-80); Nucleated Red Blood Cell # 0.00 Thou/mm3 (0.00-0.00); Nucleated Red Blood Cell % 0 /100 WBC (0); Platelet Count 298 Thou/mm3 (140-440); RDW Standard Deviation 48.3 fL (36.4-46.3); Red Blood Count 3.06 Miln/mm3 (4.00-5.20); White Blood Count 10.6 Thou/mm3 (3.6-11.0)
[2025-01-18 07:25] VITALS: BP 110/68; PULSE 72; RESP 14; TEMP 36.7; O2SAT 98
[2025-01-18] MEDS: IBUPROFEN TAB 400 MG TABLET 800 MG PO (07:34)
--- NOTE | 2025-01-18 08:29 | PD.LDDS ---
DS: Providers Provider Date of admission: 01/16/25 10:27 Primary care physician: Physician No Primary/Family Admitting Provider: Nicho Hemphill MD Attending Provider on Admission: Nicho Hemphill MD Consults: 01/16/25 14:47 Referral Routine Comment: Attending Provider on DC: Martha Ordaz MD Discharging Provider: Martha Ordaz MD DS: Diagnosis Discharge Diagnosis (1) delivery delivered: Status: Acute (2) Other acute postprocedural pain: Status: Acute (3) Supervision of high risk , unspecified, third trimester: Status: Acute (4) Rh negative status during : Status: Acute Problem List Completed Was Problem List Reviewed/Reconciled?: Yes Summary/Hosp Course Brief History: 24-year-old 2 para 1 at 39 weeks presents for scheduled primary low-transverse with bilateral tubal ligation Patient elected to have a because of history of shoulder dystocia with clavicle fracture during her previous delivery Patient also elected to have a surgical sterilization. She was given multiple opportunities to consider her decision including conversation about high rate of regret at her age and the risk of irreversibility. After consideration of all information and being given the opportunity to ask questions she still elected to proceed with the salpingectomy. Denies any contractions, leakage of fluid or vaginal bleeding and reports good movements Peripartum Data Delivery Method: Low Transverse Episiotomy Description: None Procedures: Procedures Operation Date: 01/16/25 13:11 Actual Procedure Side Surgeon p C Section w/Tubal OR Nicho Hemphill MD Status at Discharge Functional status at discharge: independent ambulation Overall status at discharge: patient is progressing back to baseline Time Spent with Patient Time attestation: Total time spent providing and/or coordinating discharge services: Time spent: Less than 30 minutes Exam Vital Signs Temp Pulse Resp BP Pulse Ox O2 Del Method 98.1 F 72 14 110/68 98 Room Air 01/18/25 07:25 01/18/25 07:25 01/18/25 07:25 01/18/25 07:25 01/18/25 07:25 01/18/25 07:25 Narrative Exam Patient is alert x 3 she is ambulating has passed flatus still needing stronger pain medication Abdomen soft uterine fundus nontender Incision clean dry and intact Vaginal bleeding minimal No calf tenderness No dizziness crying breast and bottlefeeding both Routine Respiratory Exam Respiratory: Present chest non-tender, lungs clear, normal breath sounds, no resp distress and CTA bilaterally Routine Cardiovascular Exam Cardiovascular: Present RRR Routine Abdominal Exam Abdominal: Present soft and normoactive bowel sounds Routine Extremities Exam Extremities: Present edema, full ROM and pulses intact Comments: mild , no calf tendernes Routine Skin Exam Skin: Present intact and normal turgor Routine Neurological Exam Neurological: Present alert, oriented X3 and normal speech Routine Psychiatric Exam Psychiatric: Present normal affect, normal thought process and cooperative Discharge Plan Plan Patient Disposition: HOME (Self Care) Patient condition on transfer: Stable Prescriptions/Referrals Prescriptions/Med Rec: New hydrocodone-acetaminophen 5-325 mg tablet 1 tab PO Q6H MDD 4 PRN (Reason: pain) 5 Days Qty: 20 0RF docusate sodium [Stool Softener] 100 mg capsule 100 mg PO QDAY 30 Days Qty: 30 0RF ibuprofen 600 mg tablet 600 mg PO Q6H MDD 4 PRN (Reason: fever or pain) 10 Days Qty: 40 0RF Continued vitamin #45-iron-FA 28 mg iron- 1 mg tablet,chewable 1 tab PO QDAY Referrals: Nicho Hemphill MD [Physician] - No Primary/Family,Physician [Primary Care Provider] - Patient/Caregiver Discharge Instructions Meds to Beds: Yes Discharge Activity: activity as tolerated Other Discharge Activity Instructions:: pelvic rest x 6 weeks Education Materials: After a , C Section Dc Print Language: Luxembourgish Stand Alone Forms: Tamika Award Info., Patient Portal Info Letter Discharge Order Discharge Orders: Discharge (Routine); Ordered 01/18/25 Ordered By: Martha Ordaz Planned Discharge Date 01/18/25
[2025-01-18] MEDS: DOCUSATE SOD 100 MG CAPSULE PO (08:36)
[2025-01-18] MEDS: HYDROcodone/APAP 5/325 TABLET 1 TAB PO ×2 (08:42→13:52)
== END 2025-01-18 14:40 | disposition home or self-care (01) | DRG 785 ==
LOC: S4SX 12:58 → S4NX 13:02
PROVIDERS: Obstetrics & Gynecology; Admitting Provider Obstetrics & Gynecology; Visit Provider Obstetrics & Gynecology
PROC: 0UL70ZZ Occlusion of Bilateral Fallopian Tubes, Open Approach (ICD-10-PCS; CPT 59514; principal; 2025-01-16 12:30)
DX: O82 Encounter for cesarean delivery without indication (principal); O69.81X0 Labor and delivery complicated by cord around neck, without compression, not applicable or unspecified; Z30.2 Encounter for sterilization; Z87.59 Personal history of other complications of pregnancy, childbirth and the puerperium; Z37.0 Single live birth; Z3A.39 39 weeks gestation of pregnancy; Z67.11 Type A blood, Rh negative
CPT/HCPCS: 36415; 59409; 85025; 85461; 86780; 86850; 86870; 86900; 86901; 90715; 94762; A4649; J0689; J1885; J2274; J2371; J2590; J2765; J2790; J3010; J3490; J7120; A9270; J2270

== ENCOUNTER 2025-03-14 11:00 | Outpatient (AMB) | payer BC, SELFPAY ==
[2025-03-14 11:09] VITALS: BP 106/69; PULSE 79; RESP 17; TEMP 36.6; O2SAT 95; BMI 37.4
--- NOTE | 2025-03-14 11:09 | AMBOBPPN_ITS ---
Vital Signs 03/14/25 11:09 Height 1.6 m Height Method Stated Weight 95.935 kg Weight Measurement Method Standing Scale BMI 37.4 BP 106/69 Blood Pressure Source Automatic Cuff Blood Pressure Location Right Upper Arm Position Sitting Respiration 17 Pulse 79 Pulse Source Monitor Temp 97.9 F Temp Source Temporal Artery Scan Pulse Oximetry (%) 95 Oxygen Delivery Method Room Air Allergies/Home Meds Allergies & Medications Allergies No Known Allergies Allergy (Verified 03/14/25 11:10) Medication Reconciliation vitamins no.45-iron-FA 28 mg iron-1 mg chewable tablet 1 tab PO QDAY 11/28/24 [History Confirmed 03/14/25] Intake Visit Data Collection New Patient or Established: Established Patient (seen at 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: Past Medical History Past Medical History: No Hx Neurological Disorders, No Hx Cardiac Disorders, No Hx Cancer, No Hx Blood Disorders, No Hx Anemia, No Hx Gastrointestinal Disorders, No Hx Renal Disease, No Hx Diabetes Mellitus Type 1 and No Hx Diabetes Mellitus Type 2 Questionnaires Covid-19 Vaccine Questionnaire Has patient been vacinated for Covid-19 Have you been vacinated for Covid-19: No Social History Living Situation History Marital Status: Lives With: Family Housing: House Tobacco History Smoking Status: Never smoker Second Hand Smoke Exposure: No Alcohol History Alcohol Intake: Never Substance Use History Substance Use: NONE Domestic Abuse History Do You Feel Safe at Home: Yes EPDS - PP Depression Screening [place] Pospartum Depression Screen I have been able to laugh and see the funny side of things: (1) Not quite so much now I have looked forward with enjoyment to things: (1) Rather less than I used to I have blamed myself unnecessarily when things went wrong: (2) Yes, some of the time I have been anxious or worried for no good reason: (3) Yes, very often I have felt scared or panicky for no very good reason: (2) Yes, sometimes Things have been getting on top of me: (2) Yes, sometimes I haven't been coping as well as usual I have been so unhappy that I have had difficulty sleeping: (1) Not very often I have felt sad or miserable: (2) Yes, quite often I have been so unhappy that I have been crying: (2) Yes, quite often The thought of harming myself has occurred to me: (0) Never EPDS completed yes Care OB Visit Log OB Flowsheet Initial Weight: Not Recorded Date -?-?-?-?-?-?-?-?-?-?-?-?- EGA Weight BP Alb Glu CTX Pres Fundal ht FHR Mov Dilation Station Effacement Hx Notes Visit Note 08/20/24 -?-?-?-?-?-?-?-?-?-?-?-?- 17w 5d 106.311 kg 108/72 135 09/17/24 -?-?-?-?-?-?-?-?-?-?-?-?- 21w 5d 106.708 kg 132/72 145 - Go to [facility] for a glucose test - Fast before the test - Drink glucose solution at the lab - Blood will be drawn at 1 hour and 2 hours. - Call Dr. Roman's office to release y our records to us - Regular visit in 4 weeks - Earlier visit to discuss ultrasound re sults once we receive them - We will call you when we have the ultr asound report to schedule the earlier visit 10/22/24 -?-?-?-?-?-?-?-?-?-?-?-?- 26w 5d 108.664 kg 122/77 140 Asya, 24 y/o at 29w4d, presents for routine visit. Reports good movement, no contractions, and no complaints. History of one prior full-term vaginal delivery. Patient expresses clear desire for a primary section this . Gestational diabetes screen was negative (2-hour GTT: 87, 143, 119). FHR auscultated at [address] Mann is scheduled for tomorrow. Plan: Schedule elective primary secti on between 39?40 weeks gestation Submit booking request today Schedule ultrasound at 34 weeks for feta l weight and growth Follow-up in 2 weeks Begin weekly visits after 34 weeks Review echo results at next visit 11/19/24 -?-?-?-?-?-?-?-?-?-?-?-?- 30w 5d 108.465 kg 115/74 @ 28w, transferred care from [facility], requesting primary due to prior shoulder dystocia with clavicle fracture. Reports good FM, no CTX/LOF/VB. No GARCIA/VC/Epig pain. FHT 135 bpm. NAN 01/23/25. Plan: Schedule between 01/16?01/10 4 pending outside records. Ultrasound for growth on 12/05. Order CBC and RPR. Follow-up q2 weeks. 12/03/24 -?-?-?-?-?-?-?-?-?-?-?-?- 32w 5d 106.764 kg 105/71 unknown 32 135 active at 32w, NAN 01/23/25. Hx shoulder dystocia/clavicle fracture, desires C/S. No CTX/LOF/VB, good FM. Denies GARCIA/VC/epigastric pain. Recent hip pain, ER visit, off work 1 week. Schedule C/S 01/16 at 12:30pm (39w), request records from [facility], work clearance letter PRN, GBS culture end of December, FU 2w. Precautions reviewed. 12/27/24 -?-?-?-?-?-?-?-?-?-?-?-?- 36w 1d 107.218 kg 118/73 occasional unknown 36 145 active at 36w1d presenting for routine visit. FHR 145. GBS swab obtained today. Scheduled for primary on 01/16/25 at 12:30. Patient interested in tubal ligation; consent signed 12/10/24 after counseling on alternatives including IUD. Plan: proceed with scheduled ; follow up first week of January. 01/10/25 -?-?-?-?-?-?-?-?-?-?-?-?- 38w 1d 106.254 kg 110/75 absent cephalic 38 15 0 active - Monserrat Sam is a 24-year-old female, 2 para 1, at 38 weeks and 1 day gestation, presenting for routine care. - Patient is scheduled for a repeat C-se ction on 01/17/2025 at 12:30 PM. - She reports: - No contractions - No issues - Active movement - Patient denies any specific questions or concerns. - Repeat scheduled for 01-17-2025 at 12:30 PM - Patient to check in at 10:00 AM on the day of surgery - No food or water after midnight before the surgery - If contractions occur every 10 minutes or closer prior to , patient to come in for earlier delivery - Make post-op appointment 2 weeks after for perineum removal and examination NAN Calculator Estimated Delivery Date Method Current WG Current Estimate 01/23/25 Ultrasound #1 47w 3d Other Estimates 01/03/25 LMP (Uncertain) 50w 2d HPI Interval History: Monserrat Sam presents for a work extension letter and follow-up care following her recent delivery. She is requesting an extension of her maternity leave until April 14, with plans to return to work on April 15, though she indicates she will subsequently take bonding time rather than actually returning to work at that point. Her employer is requiring documentation every 2 weeks and is expecting the doctor's note today. The patient may also need disability extension documentation, though she is uncertain about this requirement at present. The patient reports that her perineal area has healed completely following delivery. She states that her baby is doing well. She has a history of perineorrhaphy (perineal repair), recently completed and healed. The patient works and is currently on work leave, planning to return to work with bonding time extension. She has a male . She has an obstetric history of G1 T1 L1 with recent delivery of a male with perineal repair that has healed. ROS: Not documented. Exam General General Appearance: alert, in no apparent distress and healthy appearing Head Head exam: atraumatic Neck Neck exam: Present normal inspection and trachea midline Chest Chest inspection: Present normal inspection and symmetric chest wall rise External exam: Present normal external exam; Absent tenderness Neuro Neurological exam: Present oriented X3 Psych Psychiatric exam: Present normal affect and normal mood Office Procedures [facility] LOC & Office Proc's Nursing/Assessment Patient Status: Established Patient OB Clinic Nursing Assessment: Medication Reconciliation, Update PMH in EMR and Vital Signs OB Clinic Coordination of Care: Complex Care and Chronic Disease 1-5, Education Complex Pt/Fam, Consent,records obtained, informed consent and Staff clarify orders Established Patient Charge Established Patient Point Assignment: 90 Established Patient Point Charge: EP Level 3 (80-115) Antepartum Initial or Follow-up Antepartum Follow up Visit: Yes Assessment & Plan Diagnosis / Problem List (1) delivery delivered: Status: Acute Plan Recovery: - Patient is in the period following recent delivery. - Perineal healing has been assessed and confirmed as complete. - The baby is reported to be doing well. Plan: - Extend medical leave until April 14, 2025. - Provide work note for extended leave. - Patient to return to work on April 15, 2025 for administrative purposes before transitioning to bonding time.
== END 2025-03-14 11:22 | disposition home or self-care (01) ==
LOC: HODSOBC 11:00
PROVIDERS: Supervising Provider Obstetrics & Gynecology; Visit Provider Obstetrics & Gynecology
DX: Z39.2 Encounter for routine postpartum follow-up (principal)
CPT/HCPCS: 99213; Z1034; G0463